=== PATIENT | female | born 1935 ===

== ENCOUNTER 2017-11-12 17:50 | Inpatient (IN) | payer MEDICARE ==
--- NOTE | 2017-11-12 19:40 | ED PDOC ---
HPI: Psych/Substance Abuse Time Seen by Provider: 11/12/17 18:07 Chief Complaint (Nursing): Psychiatric Evaluation Chief Complaint (Provider): Psychiatric Evaluation History Per: Patient, Family (Daughter) History/Exam Limitations: no limitations Onset/Duration Of Symptoms: Days (past few days), Other Current Symptoms Are (Timing): Still Present Additional Complaint(s): 82 year old female, with a past medical history of HTN and hypercholesterolemia , was brought to the ED by her daughter due to agitation and bizarre behavior for a couple of days. According to daughter, patient has been showing increased agitation, increased screaming, and making suicidal statements. Daughter states the patient has been showing these symptoms for the past year, but the increased frequency of these behaviors caused her concern. Patient has no medical complaints. PMD: Provider TBD Past Medical History Reviewed: Historical Data, Nursing Documentation, Vital Signs Vital Signs: Last Vital Signs Temp 97.4 F L 11/12/17 17:56 Pulse 77 11/12/17 17:56 Resp 16 11/12/17 17:56 BP 156/79 H 11/12/17 17:56 Pulse Ox 97 11/12/17 17:56 - Medical History PMH: HTN, Hypercholesterolemia - Surgical History Surgical History: Appendectomy, Cholecystectomy - Family History Family History: States: Unknown Family Hx - Home Medications Home Medications: Ambulatory Orders Medication Instructions Recorded No Known Home Med 11/13/17 - Allergies Allergies/Adverse Reactions: Allergies Allergy/AdvReac Type Severity Reaction Status Date / Time No Known Allergies Allergy Verified 11/12/17 17:56 Review of Systems ROS Statement: Except As Marked, All Systems Reviewed And Found Negative Physical Exam - Reviewed Nursing Documentation Reviewed: Yes Vital Signs Reviewed: Yes - Physical Exam Appears: Positive for: Well, Non-toxic, No Acute Distress Head Exam: Positive for: ATRAUMATIC, NORMAL INSPECTION, NORMOCEPHALIC Skin: Positive for: Normal Color, Warm, Dry. Negative for: Rash Eye Exam: Positive for: EOMI, Normal appearance, PERRL Neck: Positive for: Normal, Painless ROM, Supple Cardiovascular/Chest: Positive for: Regular Rate, Rhythm. Negative for: Murmur Respiratory: Positive for: Normal Breath Sounds. Negative for: Respiratory Distress Gastrointestinal/Abdominal: Positive for: Normal Exam, Soft. Negative for: Tenderness Back: Positive for: Normal Inspection. Negative for: L CVA Tenderness, R CVA Tenderness, Vertebral Tenderness Extremity: Positive for: Normal ROM. Negative for: Pedal Edema, Deformity Neurologic/Psych: Positive for: Alert, Oriented (x2), Mood/Affect (Agitated) - Laboratory Results Result Diagrams: 11/12/17 21:00 11/12/17 21:00 - ECG O2 Sat by Pulse Oximetry: 97 (RA) Pulse Ox Interpretation: Normal Medical Decision Making Medical Decision Making: Time: 18:52 Initial Impression: Psychosis or dementia Plan: --CT Head w/o contrast --Alcohol serum --CMP --Urine drug screen --ED Urine dipstick --CBC w/ differential --Reevaluation --Patient will required medical clearance for crisis evaluation Time: 19:00 --Patient will be endorsed to Dr. Barnard pending workup and crisis evaluation. Scribe Attestation: Documented by Rodrick Sánchez, acting as a scribe for Dana Lopez MD. Provider Scribe Attestation: All medical record entries made by the Scribe were at my direction and personally dictated by me. I have reviewed the chart and agree that the record accurately reflects my personal performance of the history, physical exam, medical decision making, and the department course for this patient. I have also personally directed, reviewed, and agree with the discharge instructions and disposition. Disposition - Clinical Impression Clinical Impression: Psychotic disorder - Patient ED Disposition Is Patient to be Admitted: Transfer of Care Counseled Patient/Family Regarding: Studies Performed, Diagnosis - Disposition Disposition: Transfer of Care Disposition Time: 19:00 Condition: STABLE Patient Signed Over To: Lizzeth Barnard Handoff Comments: pending workup and crisis evaluation
--- NOTE | 2017-11-12 19:54 | ED PDOC ---
- Laboratory Results Result Diagrams: 11/12/17 21:00 11/12/17 21:00 - ECG O2 Sat by Pulse Oximetry: 97 (RA) Medical Decision Making Medical Decision Making: Time: 19:00 --Patient signed over to me by Dr. Lopez pending workup and crisis evaluation. Time: 21:04 CT Head Findings: Brain: Moderate atrophy. No intracranial hemorrhage. No mass. Several scattered foci of decreased attenuation within periventricular/subcortical white matter. 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 No definite edema. Ventricles: No hydrocephalus. Bones/joints: No acute fracture. Soft tissues: Unremarkable. Vasculature: Atherosclerotic disease of intracranial arteries. Sinuses: No acute sinusitis. Mastoid air cells: No mastoid effusion. Orbits: Unremarkable as visualized. IMPRESSION: 1. Nonspecific white matter changes. Acute infarction may be CT occult within first 24 hours. If a focal deficit persists, consider followup CT or MRI for further evaluation. 2. Incidental/non-acute findings are described above [id number] Patient was evaluated by crisis and was accepted for admission under Dr. Wahl for unspecified psychotic disorder. Admission will be to INPATIENT ADULT PSYCHIATRY. Scribe Attestation: Documented by Rodrick Sánchez, acting as a scribe for Lizzeth Barnard MD. Provider Scribe Attestation: All medical record entries made by the Scribe were at my direction and personally dictated by me. I have reviewed the chart and agree that the record accurately reflects my personal performance of the history, physical exam, medical decision making, and the department course for this patient. I have also personally directed, reviewed, and agree with the discharge instructions and disposition. Disposition Counseled Patient/Family Regarding: Diagnosis - Clinical Impression Clinical Impression: Psychotic disorder - POA Present On Arrival: None - Disposition Disposition: Admitted as In-Patient (INPATIENT ADULT PSYCHIATRY) Disposition Time: 23:25 Condition: STABLE
--- NOTE | 2017-11-12 21:04 | CT ---
EXAM: CT Head Without Intravenous Contrast CLINICAL HISTORY: 82 years old, female; Signs and symptoms; Altered mental status/memory loss; Additional info: AMS TECHNIQUE: Axial computed tomography images of the head/brain without intravenous contrast. All CT scans at this facility use one or more dose reduction techniques, viz.: automated exposure control; ma/kV adjustment per patient size (including targeted exams where dose is matched to indication; i.e. head); or iterative reconstruction technique. Coronal and sagittal reformatted images were created and reviewed. COMPARISON: No relevant prior studies available. FINDINGS: Brain: Moderate atrophy. No intracranial hemorrhage. No mass. Several scattered foci of decreased attenuation within periventricular/subcortical white matter. 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 No definite edema. Ventricles: No hydrocephalus. Bones/joints: No acute fracture. Soft tissues: Unremarkable. Vasculature: Atherosclerotic disease of intracranial arteries. Sinuses: No acute sinusitis. Mastoid air cells: No mastoid effusion. Orbits: Unremarkable as visualized. IMPRESSION: 1. Nonspecific white matter changes. Acute infarction may be CT occult within first 24 hours. If a focal deficit persists, consider followup CT or MRI for further evaluation. 2. Incidental/non-acute findings are described above.
[2017-11-12 21:09] LABS: BASO # 0.1 K/uL (0.0-0.2); BASO % 0.8 % (0.0-2.0); EOS # 0.1 K/uL (0.0-0.7); EOS % 1.2 % (0.0-4.0); HEMOGLOBIN 13.3 g/dL (12.0-16.0); LYMPH # 2.8 K/uL (1.0-4.3); MEAN CELL VOLUME 87.2 fl (81.0-99.0); MEAN CORPUSCULAR HEMOGLOBIN 28.3 pg (27.0-31.0); MEAN CORPUSCULAR HGB CONC 32.4 g/dL (33.0-37.0); MEAN PLATELET VOLUME 8.7 fl (7.2-11.7); MONO # 0.7 K/uL (0.0-0.8); MONO % 6.9 % (0.0-10.0); NEUT # 6.8 K/uL (1.8-7.0); NEUT % 64.1 % (50.0-75.0); NRBC % 0.1 % (0.0-0.0); RBC 4.71 Mil/uL (3.80-5.20); RED CELL DISTRIBUTION WIDTH 14.1 % (11.5-14.5); WHITE BLOOD COUNT 10.6 K/uL (4.8-10.8)
[2017-11-12 21:27] LABS: SQUAMOUS EPITHIAL 2 /hpf (0-5); URINE AMORPHOUS SEDIMENT RARE /ul (<OCC); URINE BACTERIA OCC (<OCC); URINE BILIRUBIN NEGATIVE (NEGATIVE); URINE BLOOD NEGATIVE (NEGATIVE); URINE CLARITY SLIGHTY-CLOUDY (Clear); URINE COLOR YELLOW (YELLOW); URINE GLUCOSE (UA) NEG (Normal); URINE LEUKOCYTE ESTERASE TRACE Leu/uL (Negative); URINE NITRATE NEGATIVE (NEGATIVE); URINE PROTEIN NEGATIVE (NEGATIVE)
[2017-11-12 21:34] LABS: ALB/GLOB RATIO 1.2 (1.0-2.1); ALBUMIN 4.2 g/dL (3.5-5.0); ALT/SGPT 40 U/L (9-52); AST/SGOT 40 U/L (14-36); BLOOD UREA NITROGEN 23 mg/dl (7-17); CALCIUM 9.8 mg/dL (8.4-10.2); GFR AFRICAN-AMERICAN > 60; GFR NON-AFRICAN AMERICAN > 60
[2017-11-12 21:47] LABS: BARBITURATES, UR NEGATIVE (NEGATIVE); BENZODIAZEPINES, UR NEGATIVE (NEGATIVE); OPIATES, UR NEGATIVE (NEGATIVE); PHENCYCLIDINE, UR NEGATIVE (NEGATIVE)
[2017-11-13] MEDS ORDERED: Bismuth Subsalicylate 262 mg/15 ml Sus (240 ml) PO PRN (01:21)
[2017-11-13] MEDS ORDERED: Alum-Mag Hydrox-Simethicone Susp (30 mL) PO PRN (01:21)
[2017-11-13] MEDS ORDERED: Magnesium Hydroxide Susp 30 ml UD PO PRN (01:21)
--- NOTE | 2017-11-13 02:28 | PCM.BM ---
<Zenobia Cannon - Last Filed: 11/13/17 02:27> Treatment Plan Problems - Problems identified on initial assessmt Agitated/Aggressive Behavior Date Initiated: 11/13/17 Time Initiated: 02:27 Assessment reference: NA Status: Active Treatment assets and liabiliti Patient Assests: cooperative, good support system, negotiates basic needs Patient Liabilities: language/speech - Milieu Protocol Maintain good personal hygiene: daily Encourage regular showers, daily Remind patient to perform daily oral care, daily Assist patient to perform ADL's Conduct patient checks and document Observation sheet: Q15 minutes Maintain personal safety: every shift Educate patient to report safety concerns to staff, every shift Monitor environment for contraband/sharps Medication safety: Monitor for expected outcome, potential side effects: every shift, Assess barriers to learning: every shift, Assess readiness for medication education: every shift <Carissa Bowens - Last Filed: 11/16/17 11:50> - Diagnosis (1) Dementia with behavioral disturbance Status: Acute Interventions: Medication management, Individual and group therapy, Psychoeducation 11/16/17 11:50 <Adelia Croft - Last Filed: 11/16/17 15:52> Family Contact Family contact: Patient agrees to contact, Telephone contact initiated by staff Family contact name: Peggy Sherman - daughter Family contacted how many times per week?: 2 Family contact comment: [phone] - Goals for Treatment Patient goals for treatment: Pt to be encouraged to attend activity and clinical groups 3-5x per week to identify at least 2 contributing factors to increased agitation, irritability, and aggression. Psycho-education to be provided to patient/family regarding benefits of medications and treatment adherence. Pt to be encouraged to participate in group milieu to develop effective coping skills to reduce aggression and reduce psychiatric hospitalizations. Coordinate discharge resource needs by providing referral for psychiatric treatment follow up in the community. Discharge/Continuing Care - Education Needs Education Needs: Family Medication, Family Diagnosis/Disease Process, Family Coping Skills, Family Anger Management skills, Family Placement options, Family Community resources, Family Activities of Daily Living, Family Uses of Medical Equipment, Family Health Practices/Safety, Family Personal Hygiene/Grooming, Family Aftercare Safety Plan, Patient Medication, Patient Diagnosis/Disease Process, Patient Coping Skills, Patient Anger Management skills, Patient Placement options, Patient Community resources, Patient Activities of Daily Living, Patient Uses of Medical Equipment, Patient Health Practices/Safety, Patient Personal Hygiene/Grooming, Patient Aftercare Safety Plan - Discharge Discharge Criteria: Tolerates medication w/o severe side effects, Free of agitation, Normal sleep pattern, Ability to care for self, Reduction of target symptoms Discharge to:: Home, With Family - Additional Comments 11/16/17 15:50 Pt seen and discussed in team meeting. Reason for admission reviewed and discussed. Pt continues to present with poor insight into hospitalization. Pt is confused and disoriented. Pt believes that she is [place]. Pt unable to state reason for hospitalization. Pt's social and medical issues reviewed and discussed. Pt's medications reviewed and discussed. Tx plan discussed. SW will continue to follow case. - Treatment Team Participation Discussed with Family/SO: No Was Patient/Family/SO present at Treatment Team Meeting: Yes
[2017-11-13] MEDS ORDERED: Pneumococcal 23-Valent Vaccine IM ONE (02:45)
[2017-11-13] MEDS ORDERED: Influenza Vaccine 18yr & older 0.5 ML/45 MCG SYR IM ONE (02:49)
[2017-11-13 06:45] VITALS: O2SAT 97
[2017-11-13 08:07] LABS: IRON 24 ug/dL (37-170)
--- NOTE | 2017-11-13 08:14 | CARD ---
APPROVED REPORT EKG Measurement Heart [id number] ID [id number] <Conclusion> Normal sinus rhythm Nonspecific ST abnormality Abnormal EKG artefact present
[2017-11-13 08:17] LABS: TOTAL IRON BINDING CAPACITY 277 ug/dL (250-450)
[2017-11-13 08:28] LABS: T4 9.74 ug/dl (5.5-11.0)
--- NOTE | 2017-11-13 08:32 | RAD ---
HISTORY: chest pain COMPARISON: No prior. FINDINGS: LUNGS: No active pulmonary disease. PLEURA: No significant pleural effusion identified, no pneumothorax apparent. CARDIOVASCULAR: Normal. OSSEOUS STRUCTURES: Mediastinal anatomy is somewhat distorted by a prominent scoliotic deformity of the thorax spine common index to the right (dextroscoliosis). VISUALIZED UPPER ABDOMEN: Normal. OTHER FINDINGS: None. IMPRESSION: Scoliotic thoracic spinal deformity. No acute cardiopulmonary is appreciable at this time.
[2017-11-13 08:33] LABS: % IRON SATURATION 9 % (20-55)
[2017-11-13 08:46] LABS: FERRITIN 42.7 ng/Ml (11.1-264.0)
--- NOTE | 2017-11-13 11:16 | CP.PCM.CON ---
<Tuan Meyer - Last Filed: 11/14/17 14:47> History of Present Illness - History of Present Illness History of Present Illness: 82 y/o female, with a PMHx of HTN and hypercholesterolemia was seen and evaluated at bedside in psych this morning. Patient states that she was brought in to the ED yesterday by her kids because her kids believe that she is becoming crazy. Patient reports that she was bathing in the river in [place] and now she has water stuck in her ear. Patient denies of any discomfort in her ears. Denies of any acute overnight events. Patient also denied of any burning during urination. Denies of any recent F/N/V/C/SOB/CP/headache/ diarrhea. Denies of any new complains at this time. PMHx: HTN, Hypercholestrolemia PSHx: Appendectomy, Cholecystectomy Allergies: N.K.D.A SHx: Denies of smoking, EtOH use or illicit drug usage FHx: unknown family history PMD: unable to obtain Review of Systems - Constitutional Constitutional: As Per HPI Past Patient History - Past Social History Smoking Status: Never Smoked - CARDIAC Hx Cardiac Disorders: Yes - PULMONARY Hx Tuberculosis: No - NEUROLOGICAL HX Cerebrovascular Accident: No Hx Seizures: No - HEMATOLOGICAL/ONCOLOGICAL Hx Cancer: No Hx Human Immunodeficiency Virus (HIV): No - MUSCULOSKELETAL/RHEUMATOLOGICAL Hx Falls: Yes (5mons ago) - GENITOURINARY/GYNECOLOGICAL Hx Sexually Transmitted Disorders: No - PSYCHIATRIC Hx Substance Use: No - SURGICAL HISTORY Hx Appendectomy: Yes Hx Cholecystectomy: Yes - ANESTHESIA Hx Anesthesia: Yes Hx Anesthesia Reactions: No Meds Allergies/Adverse Reactions: Allergies Allergy/AdvReac Type Severity Reaction Status Date / Time No Known Allergies Allergy Verified 11/12/17 17:56 - Medications Medications: Current Medications Acetaminophen (Tylenol 325mg Tab) 650 mg PO Q6 PRN PRN Reason: FOR PAIN ON PAIN SCALE FROM1-7 Al Hydrox/Mg Hydrox/Simethicone (Maalox Plus 30 Ml) 30 ml PO Q4 PRN PRN Reason: Dyspepsia Bismuth Subsalicylate (Pepto-Bismol) 524 mg PO Q4 PRN PRN Reason: Diarrhea Lorazepam (Ativan) 0.5 mg PO HS PRN PRN Reason: Insomnia Stop: 11/27/17 01:22 Lorazepam (Ativan) 0.5 mg PO Q6 PRN PRN Reason: Anixety/Agitation Stop: 11/27/17 01:22 Last Admin: 11/13/17 01:43 Dose: 0.5 mg Magnesium Hydroxide (Milk Of Magnesia) 30 ml PO HS PRN PRN Reason: Constipation Physical Exam - Constitutional Appears: Well, Non-toxic, No Acute Distress - Head Exam Head Exam: ATRAUMATIC - Eye Exam Eye Exam: Normal appearance - ENT Exam ENT Exam: Normal Exam, Normal External Ear Exam - Neck Exam Neck exam: Positive for: Full Rom, Normal Inspection - Respiratory Exam Respiratory Exam: Clear to Auscultation Bilateral, NORMAL BREATHING PATTERN - Cardiovascular Exam Cardiovascular Exam: REGULAR RHYTHM, +S1, +S2 - GI/Abdominal Exam GI & Abdominal Exam: Normal Bowel Sounds, Soft - Rectal Exam Rectal Exam: Deferred - Extremities Exam Extremities exam: Positive for: full ROM, normal capillary refill, normal inspection. Negative for: calf tenderness, pedal edema, tenderness - Back Exam Back exam: FULL ROM, NORMAL INSPECTION - Neurological Exam Neurological exam: Alert, Normal Gait, Oriented x3 - Psychiatric Exam Psychiatric exam: Normal Affect, Normal Mood - Skin Skin Exam: Intact, Normal Color, Warm Results - Vital Signs Recent Vital Signs: Last Vital Signs Temp 98.3 F 11/13/17 01:05 Pulse 84 11/13/17 01:05 Resp 18 11/13/17 01:09 BP 113/63 11/13/17 01:05 Pulse Ox 97 11/13/17 06:45 - Labs Result Diagrams: 11/14/17 05:30 11/12/17 21:00 Labs: Laboratory Results - last 24 hr 11/12/17 11/12/17 11/12/17 21:00 21:00 21:00 WBC 10.6 RBC 4.71 Hgb 13.3 Hct 41.1 MCV 87.2 MCH 28.3 MCHC 32.4 L RDW 14.1 Plt Count 200 MPV 8.7 Neut % (Auto) 64.1 Lymph % (Auto) 27.0 [place] % (Auto) 6.9 Eos % (Auto) 1.2 Baso % (Auto) 0.8 Neut # 6.8 Lymph # 2.8 [place] # 0.7 Eos # 0.1 Baso # 0.1 Sodium 142 Potassium 3.7 Chloride 104 Carbon Dioxide 28 Anion Gap 14 BUN 23 H Creatinine 0.8 Est GFR ( Amer) > 60 Est GFR (Non-Af Amer) > 60 Random Glucose 94 Calcium 9.8 Iron TIBC % Saturation Ferritin Total Bilirubin 0.9 AST 40 H ALT 40 Alkaline Phosphatase 82 Total Protein 7.8 Albumin 4.2 Globulin 3.6 Albumin/Globulin Ratio 1.2 Triglycerides Cholesterol LDL Cholesterol Direct HDL Cholesterol Vitamin B12 Free T4 Thyroxine (T4) TSH 3rd Generation Urine Color Urine Clarity Urine pH Ur Specific [place] Urine Protein Urine Glucose (UA) Urine Ketones Urine Blood Urine Nitrate Urine Bilirubin Urine Urobilinogen Ur Leukocyte Esterase Urine RBC (Auto) Urine Microscopic WBC Ur Squamous Epith Cells Amorphous Sediment Urine Bacteria Urine Opiates Screen Negative Urine Methadone Screen Negative Ur Barbiturates Screen Negative Ur Phencyclidine Scrn Negative Ur Amphetamines Screen Negative U Benzodiazepines Scrn Negative U Oth Cocaine Metabols Negative U Cannabinoids Screen Negative Alcohol, Quantitative < 10 11/12/17 11/13/17 11/13/17 21:08 07:16 07:16 WBC RBC Hgb Hct MCV MCH MCHC RDW Plt Count MPV Neut % (Auto) Lymph % (Auto) [place] % (Auto) Eos % (Auto) Baso % (Auto) Neut # Lymph # [place] # Eos # Baso # Sodium Potassium Chloride Carbon Dioxide Anion Gap BUN Creatinine Est GFR ( Amer) Est GFR (Non-Af Amer) Random Glucose Calcium Iron 24 L TIBC 277 % Saturation 9 L Ferritin 42.7 Total Bilirubin AST ALT Alkaline Phosphatase Total Protein Albumin Globulin Albumin/Globulin Ratio Triglycerides 75 Cholesterol 163 LDL Cholesterol Direct 95 HDL Cholesterol 36 Vitamin B12 395 Free T4 Thyroxine (T4) 9.74 TSH 3rd Generation 1.63 Urine Color Yellow Urine Clarity Slighty-cloudy Urine pH 6.0 Ur Specific [place] 1.009 Urine Protein Negative Urine Glucose (UA) Neg Urine Ketones Negative Urine Blood Negative Urine Nitrate Negative Urine Bilirubin Negative Urine Urobilinogen 2.0 H Ur Leukocyte Esterase Trace Urine RBC (Auto) 2 Urine Microscopic WBC 9 H Ur Squamous Epith Cells 2 Amorphous Sediment Rare H Urine Bacteria Occ H Urine Opiates Screen Urine Methadone Screen Ur Barbiturates Screen Ur Phencyclidine Scrn Ur Amphetamines Screen U Benzodiazepines Scrn U Oth Cocaine Metabols U Cannabinoids Screen Alcohol, Quantitative 11/13/17 07:16 WBC RBC Hgb Hct MCV MCH MCHC RDW Plt Count MPV Neut % (Auto) Lymph % (Auto) [place] % (Auto) Eos % (Auto) Baso % (Auto) Neut # Lymph # [place] # Eos # Baso # Sodium Potassium Chloride Carbon Dioxide Anion Gap BUN Creatinine Est GFR ( Amer) Est GFR (Non-Af Amer) Random Glucose Calcium Iron TIBC % Saturation Ferritin Total Bilirubin AST ALT Alkaline Phosphatase Total Protein Albumin Globulin Albumin/Globulin Ratio Triglycerides Cholesterol LDL Cholesterol Direct HDL Cholesterol Vitamin B12 Free T4 1.32 Thyroxine (T4) TSH 3rd Generation Urine Color Urine Clarity Urine pH Ur Specific [place] Urine Protein Urine Glucose (UA) Urine Ketones Urine Blood Urine Nitrate Urine Bilirubin Urine Urobilinogen Ur Leukocyte Esterase Urine RBC (Auto) Urine Microscopic WBC Ur Squamous Epith Cells Amorphous Sediment Urine Bacteria Urine Opiates Screen Urine Methadone Screen Ur Barbiturates Screen Ur Phencyclidine Scrn Ur Amphetamines Screen U Benzodiazepines Scrn U Oth Cocaine Metabols U Cannabinoids Screen Alcohol, Quantitative Assessment & Plan - Assessment and Plan (Free Text) Assessment: 82 y/o female, with a PMHx of HTN and hypercholesterolemia was seen and evaluated in psych Plan: HTN, hyperlipidemia -stable -monitor UTI - UA +, trace leukocyte estrase, patient is symptomatic - Macrobid for 3 days Psychosis - management as per psych - Date & Time Date: 11/13/17 Time: 11:18 <Rani Law - Last Filed: 11/14/17 16:15> Meds - Medications Medications: Current Medications Acetaminophen (Tylenol 325mg Tab) 650 mg PO Q6 PRN PRN Reason: FOR PAIN ON PAIN SCALE FROM1-7 Al Hydrox/Mg Hydrox/Simethicone (Maalox Plus 30 Ml) 30 ml PO Q4 PRN PRN Reason: Dyspepsia Bismuth Subsalicylate (Pepto-Bismol) 524 mg PO Q4 PRN PRN Reason: Diarrhea Ciprofloxacin (Cipro) 500 mg PO Q12 LINDA Stop: 11/17/17 21:01 Donepezil HCl (Aricept) 5 mg PO HS LINDA Lorazepam (Ativan) 0.5 mg PO HS PRN PRN Reason: Insomnia Stop: 11/27/17 01:22 Last Admin: 11/13/17 21:59 Dose: 0.5 mg Lorazepam (Ativan) 0.5 mg PO Q6 PRN PRN Reason: Anixety/Agitation Stop: 11/27/17 01:22 Last Admin: 11/14/17 10:28 Dose: 0.5 mg Magnesium Hydroxide (Milk Of Magnesia) 30 ml PO HS PRN PRN Reason: Constipation Memantine (Namenda) 5 mg PO DAILY LINDA Last Admin: 11/14/17 08:07 Dose: 5 mg Risperidone (Risperidone Odt 0.25mg) 0.25 mg PO HS LINDA Results - Vital Signs Recent Vital Signs: Last Vital Signs Temp 97.5 F L 11/14/17 15:48 Pulse 83 11/14/17 15:48 Resp 19 11/14/17 15:48 BP 137/78 11/14/17 15:48 Pulse Ox 97 11/13/17 15:10 - Labs Result Diagrams: 11/14/17 05:30 11/12/17 21:00 Labs: Laboratory Results - last 24 hr 11/13/17 11/13/17 11/14/17 07:16 07:16 05:30 WBC 7.5 RBC 4.30 Hgb 12.3 Hct 37.9 MCV 88.1 MCH 28.5 MCHC 32.4 L RDW 14.6 H Plt Count 181 MPV 9.0 Neut % (Auto) 59.1 Lymph % (Auto) 29.5 [place] % (Auto) 7.8 Eos % (Auto) 2.6 Baso % (Auto) 1.0 Neut # 4.5 Lymph # 2.2 [place] # 0.6 Eos # 0.2 Baso # 0.1 Calcium Magnesium Folate 3.6 RPR Nonreactive 11/14/17 05:45 WBC RBC Hgb Hct MCV MCH MCHC RDW Plt Count MPV Neut % (Auto) Lymph % (Auto) [place] % (Auto) Eos % (Auto) Baso % (Auto) Neut # Lymph # [place] # Eos # Baso # Calcium 8.9 Magnesium 2.0 Folate RPR Attending/Attestation - Attestation I have personally seen and examined this patient.: Yes I have fully participated in the care of the patient.: Yes I have reviewed all pertinent clinical information: Yes Notes (Text): 11/14/17 16:15 seen examined discussed with resident Dr. Tuan Meyer. Agree with findings and plan as above.
[2017-11-13 17:02] LABS: FOLATE 3.6 ng/mL
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
[2017-11-14 06:07] LABS: BASO # 0.1 K/uL (0.0-0.2); EOS # 0.2 K/uL (0.0-0.7); EOS % 2.6 % (0.0-4.0); HEMOGLOBIN 12.3 g/dL (12.0-16.0); LYMPH # 2.2 K/uL (1.0-4.3); LYMPH % 29.5 % (20.0-40.0); MEAN CELL VOLUME 88.1 fl (81.0-99.0); MEAN CORPUSCULAR HEMOGLOBIN 28.5 pg (27.0-31.0); MEAN CORPUSCULAR HGB CONC 32.4 g/dL (33.0-37.0); MONO # 0.6 K/uL (0.0-0.8); MONO % 7.8 % (0.0-10.0); NEUT # 4.5 K/uL (1.8-7.0); NEUT % 59.1 % (50.0-75.0); NRBC % 0.1 % (0.0-0.0); RBC 4.3 Mil/uL (3.80-5.20); RED CELL DISTRIBUTION WIDTH 14.6 % (11.5-14.5); WHITE BLOOD COUNT 7.5 K/uL (4.8-10.8)
[2017-11-14 06:24] LABS: CALCIUM 8.9 mg/dL (8.4-10.2)
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
[2017-11-14] MEDS: RISPERIDONE 0.25 MG ODT PO SCH (21:08)
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
[2017-11-15] MEDS: RISPERIDONE 0.25 MG ODT PO SCH (21:12)
--- NOTE | 2017-11-16 08:24 | CARD ---
APPROVED REPORT EKG Measurement Heart [id number] <Conclusion> Normal sinus rhythm Normal ECG
[2017-11-16] MEDS ORDERED: Multivitamin With Minerals Tab PO SCH (09:00)
--- NOTE | 2017-11-16 11:53 | PCM.PYCHPN ---
Psychiatric Progress Note - Psychiatric Progress Note Patient seen today, length of contact: Patient evaluated, case discussed with team, chart reviewed Patient Chief Complaint: "I'm okay." Problems Identified/Issues Discussed: A + O x 1, does not know her own age. Patient continues to show some mood lability. She has poor insight into why she is in the hospital and her cognitive deficits. Denies acute AH/VH, but could have some mild paranoia. Medication Change: Yes (Increase Risperdal to 0.5 mg PO HS) Medical Record Reviewed: Yes Consults ordered or reviewed: Medicine consult, Psychology consult Mental Status Examination - Cognitive Function Orientation: Person Memory: Impaired Attention: Poor Concentration: Poor Association: Loose Fund of Knowledge: Poor Decription of patient's judgement and insights: Poor insight/judgment due to cognitive impairment - Mood Mood: Neutral - Affect Affect: Constricted - Speech Speech: Appropriate - Formal Thought Process Formal Thought Process: Paranoia Psychotic Thoughts and Behaviors: Denies AH/VH - Suicidal Ideation Suicidal Ideation: No - Homicidal Ideation Homicidal Ideation: No Goal/Treatment Plan - Goal/Treatment Plan Need for Continued Stay: Remain at risks for inpatient hospitalization, Discharge may exacerbated symptoms, Severe functional impairment Progress Toward Problem(s) and Goals/Treatment Plan: Dementia with behavioral disturbances; patient needs continued hospitalization for treatment and stabilization -Increase Risperdal to 0.5 mg PO HS -Continue Cipro for UTI -Medicine consult appreciated -Individual and group therapy -Disposition planning -Continue Aricept and Namenda Estimated Date of D/C: 11/21/17 - Smoking Cessation Smoking Cessation Initiated: No Reason for not providing: Not indicated
[2017-11-16] MEDS: Risperidone M tab 0.5MG PO SCH (21:14)
[2017-11-17] MEDS: Multi Vitamins 15 mL UD Oral Solution PO SCH (10:08)
--- NOTE | 2017-11-17 11:14 | PCM.PYCHPN ---
Psychiatric Progress Note - Psychiatric Progress Note Patient seen today, length of contact: Patient evaluated, case discussed with team, chart reviewed Patient Chief Complaint: "I'm okay." Problems Identified/Issues Discussed: A + O x 1. Patient continues to be disoriented to location and situation. He is calm with narrative writer but has poor insight into why she is in the hospital. Denies acute AH/VH, but could have some mild paranoia. Medication Change: Yes (Vitamin D) Medical Record Reviewed: Yes Consults ordered or reviewed: Medicine consult, Psychology consult Mental Status Examination - Cognitive Function Orientation: Person Memory: Impaired Attention: Poor Concentration: Poor Association: Loose Fund of Knowledge: Poor Decription of patient's judgement and insights: Poor insight/judgment due to cognitive impairment - Mood Mood: Neutral - Affect Affect: Constricted - Speech Speech: Appropriate - Formal Thought Process Formal Thought Process: Paranoia Psychotic Thoughts and Behaviors: Denies AH/VH - Suicidal Ideation Suicidal Ideation: No - Homicidal Ideation Homicidal Ideation: No Goal/Treatment Plan - Goal/Treatment Plan Need for Continued Stay: Remain at risks for inpatient hospitalization, Discharge may exacerbated symptoms, Severe functional impairment Progress Toward Problem(s) and Goals/Treatment Plan: Dementia with behavioral disturbances; patient needs continued hospitalization for treatment and stabilization -Continue Risperdal 0.5 mg PO HS -Continue Cipro for UTI -Medicine consult appreciated -Individual and group therapy -Disposition planning -Continue Aricept and Namenda -Psychology consult -Vitamin D Estimated Date of D/C: 11/22/17 - Smoking Cessation Smoking Cessation Initiated: No Reason for not providing: Not indicated
--- NOTE | 2017-11-17 13:27 | CP.PCM.CON ---
History of Present Illness - History of Present Illness History of Present Illness: Pt is an 82 year old female admitted to [facility] and referred to the lead technical writer for eval. Speech rapid/pressured on interview, thoughts disorganized, patient positive for paranoia. Cognitive testing attempted though results would not be an accurate assessment of her true abilities at this time. Pt should be evaluated when her psychiatric symptoms remit. Thank you, Dr. North Past Patient History - Past Social History Smoking Status: Never Smoked - CARDIAC Hx Cardiac Disorders: Yes - PULMONARY Hx Tuberculosis: No - NEUROLOGICAL HX Cerebrovascular Accident: No Hx Seizures: No - HEMATOLOGICAL/ONCOLOGICAL Hx Cancer: No Hx Human Immunodeficiency Virus (HIV): No - MUSCULOSKELETAL/RHEUMATOLOGICAL Hx Falls: Yes (5mons ago) - GENITOURINARY/GYNECOLOGICAL Hx Sexually Transmitted Disorders: No - PSYCHIATRIC Hx Substance Use: No - SURGICAL HISTORY Hx Appendectomy: Yes Hx Cholecystectomy: Yes - ANESTHESIA Hx Anesthesia: Yes Hx Anesthesia Reactions: No Meds Allergies/Adverse Reactions: Allergies Allergy/AdvReac Type Severity Reaction Status Date / Time No Known Allergies Allergy Verified 11/12/17 17:56 - Medications Medications: Current Medications Acetaminophen (Tylenol 325mg Tab) 650 mg PO Q6 PRN PRN Reason: FOR PAIN ON PAIN SCALE FROM1-7 Al Hydrox/Mg Hydrox/Simethicone (Maalox Plus 30 Ml) 30 ml PO Q4 PRN PRN Reason: Dyspepsia Bismuth Subsalicylate (Pepto-Bismol) 524 mg PO Q4 PRN PRN Reason: Diarrhea Ciprofloxacin (Cipro) 500 mg PO Q12 LINDA PRN Reason: Protocol Last Admin: 11/17/17 10:07 Dose: 500 mg Donepezil HCl (Aricept) 5 mg PO HS LINDA Last Admin: 11/16/17 21:14 Dose: 5 mg Lorazepam (Ativan) 0.5 mg PO HS PRN PRN Reason: Insomnia Stop: 11/27/17 01:22 Last Admin: 11/15/17 23:07 Dose: 0.5 mg Lorazepam (Ativan) 0.5 mg PO Q6 PRN PRN Reason: Anixety/Agitation Stop: 11/27/17 01:22 Last Admin: 11/17/17 02:41 Dose: 0.5 mg Magnesium Hydroxide (Milk Of Magnesia) 30 ml PO HS PRN PRN Reason: Constipation Memantine (Namenda) 5 mg PO DAILY [facility] Last Admin: 11/17/17 10:07 Dose: 5 mg Multivitamins/Vitamin C (Multi-Delyn Liquid) 15 ml PO DAILY [facility] Last Admin: 11/17/17 10:08 Dose: 15 ml Risperidone (Risperdal M-Tab) 0.[address] [facility] Last Admin: 11/16/17 21:14 Dose: 0.5 mg Vitamin D (Vitamin D 400 Intl Units Tab) 400 intlu PO DAILY [facility] Results - Vital Signs Recent Vital Signs: Last Vital Signs Temp 98.1 F 11/16/17 15:55 Pulse 87 11/16/17 15:55 Resp 18 11/16/17 15:55 BP 118/70 11/16/17 15:55 Pulse Ox 97 11/13/17 15:10 - Labs Result Diagrams: 11/14/17 05:30 11/12/17 21:00 Labs: Laboratory Results - last 24 hr 11/16/17 11/16/17 09:15 09:15 Ferritin 32.4 25-OH Vitamin D Total 22.2 L
[2017-11-17] MEDS: Cholecalciferol 400 Intl Units Tab PO SCH ×2 (14:18→18:36)
[2017-11-17 16:08] LABS: % IRON SATURATION 19 % (20-55); IRON 62 ug/dL (37-170); TOTAL IRON BINDING CAPACITY 327 ug/dL (250-450)
[2017-11-17] MEDS: Cholecalciferol 1,000 INTLU TAB PO SCH (16:17)
[2017-11-17] MEDS: Risperidone M tab 0.5MG PO SCH (21:15)
[2017-11-18] MEDS: Cholecalciferol 1,000 INTLU TAB PO SCH ×2 (08:32→11:45)
[2017-11-18] MEDS: Multi Vitamins 15 mL UD Oral Solution PO SCH (09:57)
--- NOTE | 2017-11-18 11:18 | PCM.PYCHPN ---
Psychiatric Progress Note - Psychiatric Progress Note Patient seen today, length of contact: Patient evaluated, case discussed with team, chart reviewed Patient Chief Complaint: I do not like eggs Problems Identified/Issues Discussed: pt seen eating her breakfast, calm cooperative . no reported suicidal or homicidal ideations, no changes in sleep or appetite oriented to person only no current behavioral disturbances DSM 5 Symptoms Update: dementia Medication Change: No (Vitamin D) Medical Record Reviewed: Yes Mental Status Examination - Cognitive Function Orientation: Person Memory: Impaired Attention: Poor Concentration: Poor Association: Loose Fund of Knowledge: Poor - Mood Mood: Neutral - Affect Affect: Constricted - Speech Speech: Appropriate - Formal Thought Process Formal Thought Process: Paranoia - Suicidal Ideation Suicidal Ideation: No - Homicidal Ideation Homicidal Ideation: No Goal/Treatment Plan - Goal/Treatment Plan Need for Continued Stay: Remain at risks for inpatient hospitalization, Discharge may exacerbated symptoms, Severe functional impairment Progress Toward Problem(s) and Goals/Treatment Plan: continue current managment Estimated Date of D/C: 11/22/17
[2017-11-18] MEDS: Risperidone M tab 0.5MG PO SCH (21:27)
[2017-11-19] MEDS: Cholecalciferol 1,000 INTLU TAB PO SCH (09:38)
[2017-11-19] MEDS: Multi Vitamins 15 mL UD Oral Solution PO SCH (09:38)
--- NOTE | 2017-11-19 11:55 | PCM.PYCHPN ---
Psychiatric Progress Note - Psychiatric Progress Note Patient seen today, length of contact: Patient evaluated, case discussed with team, chart reviewed Patient Chief Complaint: I am putting my clothes in a bag Problems Identified/Issues Discussed: pt seen in hallway, , calm cooperative . no reported suicidal or homicidal ideations, no changes in sleep or appetite oriented to person only no current behavioral disturbances DSM 5 Symptoms Update: dementia Medication Change: No (Vitamin D) Medical Record Reviewed: Yes Mental Status Examination - Cognitive Function Orientation: Person Memory: Impaired Attention: Poor Concentration: Poor Association: Loose Fund of Knowledge: Poor - Mood Mood: Neutral - Affect Affect: Constricted - Speech Speech: Appropriate - Formal Thought Process Formal Thought Process: Paranoia - Suicidal Ideation Suicidal Ideation: No - Homicidal Ideation Homicidal Ideation: No Goal/Treatment Plan - Goal/Treatment Plan Need for Continued Stay: Remain at risks for inpatient hospitalization, Discharge may exacerbated symptoms, Severe functional impairment Progress Toward Problem(s) and Goals/Treatment Plan: continue current medications group and supportive therapy Estimated Date of D/C: 11/22/17
--- NOTE | 2017-11-20 09:52 | PCM.PYCHPN ---
Psychiatric Progress Note - Psychiatric Progress Note Patient seen today, length of contact: Patient evaluated, case discussed with team, chart reviewed Patient Chief Complaint: "I'm okay." Problems Identified/Issues Discussed: A + O x 1. Patient continues to be disoriented to location and situation. She is intermittent compliant with medications at times. She has not had any significant behavioral disturbances. NO current psychotic symptoms. No paranoia. Medication Change: No Medical Record Reviewed: Yes Consults ordered or reviewed: Medicine consult, Psychology consult Mental Status Examination - Cognitive Function Orientation: Person Memory: Impaired Attention: Poor Concentration: Poor Association: Loose Fund of Knowledge: Poor Decription of patient's judgement and insights: Chronic poor I/J due to dementia - Mood Mood: Neutral - Affect Affect: Constricted - Speech Speech: Appropriate - Formal Thought Process Formal Thought Process: Loosening of associations Psychotic Thoughts and Behaviors: NO AH/VH/paranoia - Suicidal Ideation Suicidal Ideation: No - Homicidal Ideation Homicidal Ideation: No Goal/Treatment Plan - Goal/Treatment Plan Need for Continued Stay: Remain at risks for inpatient hospitalization, Discharge may exacerbated symptoms, Severe functional impairment Progress Toward Problem(s) and Goals/Treatment Plan: Dementia with behavioral disturbances; patient needs continued hospitalization for treatment and stabilization -Continue Risperdal 0.5 mg PO HS -Continue Cipro for UTI -Medicine consult appreciated -Individual and group therapy -Disposition planning -Continue Aricept and Namenda -Psychology consult -Vitamin D Estimated Date of D/C: 11/22/17
[2017-11-20] MEDS ORDERED: cefTRIAXone (Rocephin) 1 gm Inj IM ONE (11:52)
--- NOTE | 2017-11-20 11:55 | CP.PCM.PN ---
Subjective - Date & Time of Evaluation Date of Evaluation: 11/20/17 Time of Evaluation: 11:54 - Subjective Subjective: PATIENT SEEN EXAMINED THIS MORNING REFUSES TO TAKE PO ABX FOR UTI. ABX CHOSEN BASED ON SENSITIVITIES, HOWEVER PT REFUSES TO TAKE PILLS. WILL GIVE ONE DOSE CEFTRIAXONE IM. Objective - Vital Signs/Intake and Output Vital Signs (last 24 hours): Temp Pulse Resp BP Pulse Ox 97.6 F 88 18 154/79 H 97 11/19/17 16:09 11/19/17 16:09 11/19/17 16:09 11/19/17 16:09 11/13/17 15:10 - Medications Medications: Current Medications Acetaminophen (Tylenol 325mg Tab) 650 mg PO Q6 PRN PRN Reason: FOR PAIN ON PAIN SCALE FROM1-7 Al Hydrox/Mg Hydrox/Simethicone (Maalox Plus 30 Ml) 30 ml PO Q4 PRN PRN Reason: Dyspepsia Bismuth Subsalicylate (Pepto-Bismol) 524 mg PO Q4 PRN PRN Reason: Diarrhea Ceftriaxone Sodium (Rocephin) 1 gm IM ONCE ONE PRN Reason: Protocol Stop: 11/20/17 11:53 Cholecalciferol (Vitamin D) 1,000 intlu PO DAILY [facility] Last Admin: 11/19/17 09:38 Dose: Not Given Ciprofloxacin (Cipro) 500 mg PO Q12 LINDA PRN Reason: Protocol Last Admin: 11/19/17 09:00 Dose: Not Given Donepezil HCl (Aricept) 5 mg PO HS [facility] Last Admin: 11/18/17 21:28 Dose: 5 mg Lorazepam (Ativan) 0.5 mg IM Q6 PRN PRN Reason: Agitation Magnesium Hydroxide (Milk Of Magnesia) 30 ml PO HS PRN PRN Reason: Constipation Memantine (Namenda) 5 mg PO DAILY [facility] Last Admin: 11/19/17 09:38 Dose: Not Given Multivitamins/Vitamin C (Multi-Delyn Liquid) 15 ml PO DAILY [facility] Last Admin: 11/19/17 09:38 Dose: Not Given Risperidone (Risperdal M-Tab) 0.5 mg PO HS [facility] Last Admin: 11/18/17 21:27 Dose: 0.5 mg - Labs Labs: 11/14/17 05:30 11/12/17 21:00
[2017-11-20] MEDS: Multi Vitamins 15 mL UD Oral Solution PO SCH (16:49)
[2017-11-20] MEDS: Cholecalciferol 1,000 INTLU TAB PO SCH (16:50)
[2017-11-20] MEDS ORDERED: Risperidone M tab 0.5MG PO SCH (17:00)
[2017-11-20] MEDS: Risperidone M tab 0.5MG PO SCH (20:07)
[2017-11-21] MEDS: Multi Vitamins 15 mL UD Oral Solution PO SCH (08:49)
[2017-11-21] MEDS: Cholecalciferol 1,000 INTLU TAB PO SCH (08:50)
--- NOTE | 2017-11-21 11:16 | PCM.PYCHPN ---
Psychiatric Progress Note - Psychiatric Progress Note Patient seen today, length of contact: Patient evaluated, case discussed with team, chart reviewed Patient Chief Complaint: "I'm okay." Problems Identified/Issues Discussed: A + O x 1. Patient continues to be disoriented to location and situation. She is currently calm and cooperative w/o any behavioral disturbances. NO current psychotic symptoms. No paranoia. Medication Change: No Medical Record Reviewed: Yes Consults ordered or reviewed: Medicine consult, Psychology consult Mental Status Examination - Cognitive Function Orientation: Person Memory: Impaired Attention: Poor Concentration: Poor Association: Loose Fund of Knowledge: Poor Decription of patient's judgement and insights: Chronic poor I/J due to dementia - Mood Mood: Neutral - Affect Affect: Constricted - Speech Speech: Appropriate - Formal Thought Process Formal Thought Process: Loosening of associations Psychotic Thoughts and Behaviors: NO AH/VH/paranoia - Suicidal Ideation Suicidal Ideation: No - Homicidal Ideation Homicidal Ideation: No Goal/Treatment Plan - Goal/Treatment Plan Need for Continued Stay: Discharge may exacerbated symptoms, Severe functional impairment Progress Toward Problem(s) and Goals/Treatment Plan: Dementia with behavioral disturbances; patient needs continued hospitalization for treatment and stabilization -Continue Risperdal 0.5 mg Daily@1300 -Patient completed treatment for UTI -Medicine consult appreciated -Individual and group therapy -Disposition planning- SW to discuss likely discharge to home tomorrow w/ patient's daughter -Continue Aricept and Namenda -Psychology consult -Vitamin D Estimated Date of D/C: 11/22/17 - Smoking Cessation Smoking Cessation Initiated: No Reason for not providing: Not indicated
[2017-11-21] MEDS ORDERED: Risperidone M tab 0.5MG PO SCH (13:00)
[2017-11-22 06:41] VITALS: BP 153/80; PULSE 69; RESP 18; TEMP 97.5
[2017-11-22] MEDS: Multi Vitamins 15 mL UD Oral Solution PO SCH (08:18)
[2017-11-22] MEDS: Cholecalciferol 1,000 INTLU TAB PO SCH (09:00)
--- NOTE | 2017-11-22 09:45 | PCM.PYCHDC ---
Mental Status Examination - Mental Status Examination Orientation: Person Memory: Impaired Mood: Neutral Affect: Broad Speech: Appropriate Attention: Poor Concentration: Poor Association: Loose Fund of Knowledge: Poor Formal Thought Process: Loosening of associations Description of patient's judgement and insight: Chronic poor I/J due to dementia Psychotic Thoughts and Behaviors: NO AH/VH/paranoia Suicidal Ideation: No Current Homicidal Ideation?: No Discharge Summary - Discharge Note Reason for Hospitalization: 82 y/o female, with a PMHx of HTN and hypercholesterolemia admitted to psychiatry for worsening dementia with behavioral disturbances and paranoia. PMHx: HTN, Hypercholestrolemia PSHx: Appendectomy, Cholecystectomy Allergies: N.K.D.A SHx: Denies of smoking, EtOH use or illicit drug usage FHx: No known family h/o mental illness Psychiatric History (includes Medical, Family, Personal Hx): evaluation of changes in memory ?dementia Consultations:: List each consultation separately and include: 1. Reason for request. 2. Findings. 3. Follow-up Consultations: Medicine consult, Psychology consult Summary of Hospital Course include:: 1. Description of specific treatment plan utilized for patients during their course of treatmen. 2. Summarize the time- course for resolution of acute symptoms and/or regressed behaviors. 3. Describe issues identified and worked on during hospitalization. 4. Describe medication utilized. 5. Describe medical problems identified and treated. 6. Reassessment of suicide risk Summary of Hospital Course: Patient was admitted to the geriatric psychiatry unit. Individual and group therapy were provided. Patient was stabilized on Aricept, Namenda and Risperdal. She no longer has paranoia or behavioral disturbances. She is psychiatrically stable for discharge with outpatient follow-up. Case was discussed with patient's daughter. They were given guidance by the older adult social work specialist on how to apply for appropriate insurance and [facility] placement. Patient is to return home under the care of her daughter. - Diagnosis (1) Dementia with behavioral disturbance Current Visit: Yes Status: Chronic - Final Diagnosis (DSM 5) Condition upon Discharge: STABLE DSM 5: Dementia with behavioral disturbance; Psychosis unspecified Disposition: HOME/ ROUTINE Follow-up Treatment Plan: Dementia with behavioral disturbances; Psychois Unspecified; patient is psychiatrically stable for discharge -Continue Risperdal 0.5 mg Daily@1300 -Patient completed treatment for UTI -Medicine consult appreciated -Individual and group therapy -Disposition planning- discharge to home under the care of her daughter -Continue Aricept and Namenda -Psychology consult -Vitamin D Prescriptions/Medication Reconciliation: Cholecalciferol [Vitamin D 1000 IU] 1,000 intlu PO DAILY #30 tab Donepezil [Aricept] 5 mg PO HS #30 tab Memantine [Namenda] 5 mg PO DAILY #30 tab risperiDONE [RisperDAL] 0.5 mg PO DAILY@1300 #30 tab - Smoking Cessation Smoking Cessation Medication prescribed: No Reason for not providing: Not indicated - Antipsychotic Medications Pt discharged on 2 or more routine antipsychotic medications: No
--- NOTE | 2017-11-23 09:49 | PCM.BM ---
Treatment Plan Problems - Problems identified on initial assessmt Agitated/Aggressive Behavior Date Initiated: 11/13/17 Time Initiated: 02:27 Assessment reference: NA Status: Active Treatment assets and liabiliti Patient Assests: cooperative, good support system, negotiates basic needs Patient Liabilities: language/speech - Milieu Protocol Maintain good personal hygiene: daily Encourage regular showers, daily Remind patient to perform daily oral care, daily Assist patient to perform ADL's Conduct patient checks and document Observation sheet: Q15 minutes Maintain personal safety: every shift Educate patient to report safety concerns to staff, every shift Monitor environment for contraband/sharps Medication safety: Monitor for expected outcome, potential side effects: every shift, Assess barriers to learning: every shift, Assess readiness for medication education: every shift Milieu Narrative: Dementia with behavioral disturbances; Psychois Unspecified; patient is psychiatrically stable for discharge -Continue Risperdal 0.5 mg Daily@1300 -Patient completed treatment for UTI -Medicine consult appreciated -Individual and group therapy -Disposition planning- discharge to home under the care of her daughter -Continue Aricept and Namenda -Psychology consult -Vitamin D Family Contact Family contact: Patient agrees to contact, Telephone contact initiated by staff Family contact name: Peggy Sherman - daughter Family contacted how many times per week?: 2 Family contact comment: [phone] - Goals for Treatment Patient goals for treatment: Pt to be encouraged to attend activity and clinical groups 3-5x per week to identify at least 2 contributing factors to increased agitation, irritability, and aggression. Psycho-education to be provided to patient/family regarding benefits of medications and treatment adherence. Pt to be encouraged to participate in group milieu to develop effective coping skills to reduce aggression and reduce psychiatric hospitalizations. Coordinate discharge resource needs by providing referral for psychiatric treatment follow up in the community. Discharge/Continuing Care - Education Needs Education Needs: Family Medication, Family Diagnosis/Disease Process, Family Coping Skills, Family Anger Management skills, Family Placement options, Family Community resources, Family Activities of Daily Living, Family Uses of Medical Equipment, Family Health Practices/Safety, Family Personal Hygiene/Grooming, Family Aftercare Safety Plan, Patient Medication, Patient Diagnosis/Disease Process, Patient Coping Skills, Patient Anger Management skills, Patient Placement options, Patient Community resources, Patient Activities of Daily Living, Patient Uses of Medical Equipment, Patient Health Practices/Safety, Patient Personal Hygiene/Grooming, Patient Aftercare Safety Plan - Discharge Discharge Criteria: Tolerates medication w/o severe side effects, Free of agitation, Normal sleep pattern, Ability to care for self, Reduction of target symptoms Discharge to:: Home, With Family - Additional Comments 11/16/17 15:50 Pt seen and discussed in team meeting. Reason for admission reviewed and discussed. Pt continues to present with poor insight into hospitalization. Pt is confused and disoriented. Pt believes that she is [place]. Pt unable to state reason for hospitalization. Pt's social and medical issues reviewed and discussed. Pt's medications reviewed and discussed. Tx plan discussed. SW will continue to follow case. - Treatment Team Participation Patient/Family/SO Statement: Dementia with behavioral disturbances; Psychois Unspecified; patient is psychiatrically stable for discharge -Continue Risperdal 0.5 mg Daily@1300 -Patient completed treatment for UTI -Medicine consult appreciated -Individual and group therapy -Disposition planning- discharge to home under the care of her daughter -Continue Aricept and Namenda -Psychology consult -Vitamin D Discussed with Family/SO: No Was Patient/Family/SO present at Treatment Team Meeting: Yes Treatment Plan Review - Problem Agitated/Aggressive Behavior Date Initiated: 11/12/17 Time Initiated: 02:27 Progress toward outcomes: resolved - Discharge / Continuing Care Discharge to:: With Family Behavioral Health Services: Outpatient therapy, Home health care, Adult day care Health Needs: Follow up care/test, Doctor appointments, Medications/Rx, Recreational/Social
== END 2017-11-22 15:25 | disposition home or self-care (01) | DRG 884 ==
LOC: H.ER 17:50 → H.ERHOLD 23:52 → H.STEP 11-13 01:07
PROVIDERS: ADMIT Psychiatry & Neurology Psychiatry; ATTEND Psychiatry & Neurology Psychiatry
PROC: GZHZZZZ Group Psychotherapy (ICD-10-PCS; principal; 2017-11-13)
PROC: GZ51ZZZ Individual Psychotherapy, Behavioral (ICD-10-PCS; 2017-11-13)
DX: F03.91 Unspecified dementia, unspecified severity, with behavioral disturbance (principal); E11.9 Type 2 diabetes mellitus without complications; N39.0 Urinary tract infection, site not specified; D50.9 Iron deficiency anemia, unspecified; E78.00 Pure hypercholesterolemia, unspecified; F32.9 Major depressive disorder, single episode, unspecified; F41.9 Anxiety disorder, unspecified; I10 Essential (primary) hypertension; Z90.49 Acquired absence of other specified parts of digestive tract; R19.5 Other fecal abnormalities; R94.31 Abnormal electrocardiogram [ECG] [EKG]

== ENCOUNTER 2017-11-24 17:39 | Emergency (ER) | payer MEDICARE, MEDICAID ==
[2017-11-24 18:01] VITALS: BP 170/88; PULSE 86; RESP 16; TEMP 98.3; O2SAT 97
[2017-11-24 19:27] LABS: BASO # 0.1 K/uL (0.0-0.2); BASO % 0.7 % (0.0-2.0); EOS # 0.2 K/uL (0.0-0.7); EOS % 2.5 % (0.0-4.0); HEMOGLOBIN 11.9 g/dL (12.0-16.0); LYMPH # 2.1 K/uL (1.0-4.3); LYMPH % 23.3 % (20.0-40.0); MEAN CELL VOLUME 87.9 fl (81.0-99.0); MEAN CORPUSCULAR HGB CONC 31.9 g/dL (33.0-37.0); MEAN PLATELET VOLUME 9.4 fl (7.2-11.7); MONO # 0.8 K/uL (0.0-0.8); MONO % 8.5 % (0.0-10.0); NEUT # 5.9 K/uL (1.8-7.0); RBC 4.24 Mil/uL (3.80-5.20); RED CELL DISTRIBUTION WIDTH 14.6 % (11.5-14.5)
[2017-11-24 19:36] LABS: ALB/GLOB RATIO 1.1 (1.0-2.1); ALBUMIN 3.7 g/dL (3.5-5.0); ALT/SGPT 37 U/L (9-52); AST/SGOT 32 U/L (14-36); BLOOD UREA NITROGEN 23 mg/dl (7-17); CALCIUM 9.4 mg/dL (8.4-10.2); GFR AFRICAN-AMERICAN > 60; GFR NON-AFRICAN AMERICAN 60
--- NOTE | 2017-11-24 20:20 | ED PDOC ---
HPI: Psych/Substance Abuse Time Seen by Provider: 11/24/17 18:08 Chief Complaint (Nursing): Psychiatric Evaluation Chief Complaint (Provider): Psychiatric Evaluation History Per: Patient History/Exam Limitations: no limitations Additional Complaint(s): 82 year old female with a past medical history of Alzheimer's dementia who presents to the emergency department accompanied by daughter for a psychiatric evaluation. As per daughter, patient was aggressive today. Patient was confused and angry about her shoe and took a knife to cut it and then started crying/ Patient mentioned to her sister that she did not want to live anymore. Denies fever, headache, chest pain, or vomiting. Past Medical History Reviewed: Historical Data, Nursing Documentation, Vital Signs Vital Signs: Last Vital Signs Temp 98.3 F 11/24/17 17:58 Pulse 86 11/24/17 17:58 Resp 16 11/24/17 17:58 BP 170/88 H 11/24/17 17:58 Pulse Ox 97 11/24/17 17:58 - Medical History PMH: HTN, Hypercholesterolemia Denies: Diabetes, Hepatitis, HIV, Seizures, Sexually Transmitted Disease - Surgical History Surgical History: Appendectomy, Cholecystectomy - Family History Family History: States: Unknown Family Hx - Home Medications Home Medications: Ambulatory Orders Medication Instructions Recorded Cholecalciferol [Vitamin D 1000 IU] 1,000 intlu PO DAILY #30 tab 11/22/17 Donepezil [Aricept] 5 mg PO HS #30 tab 11/22/17 Memantine [Namenda] 5 mg PO DAILY #30 tab 11/22/17 risperiDONE [RisperDAL] 0.5 mg PO DAILY@1300 #30 tab 11/22/17 - Allergies Allergies/Adverse Reactions: Allergies Allergy/AdvReac Type Severity Reaction Status Date / Time No Known Allergies Allergy Verified 11/12/17 17:56 Review of Systems ROS Statement: Except As Marked, All Systems Reviewed And Found Negative (As per HPI, otherwise negative) Constitutional: Positive for: Other (psychiatric evaluation). Negative for: Fever Cardiovascular: Negative for: Chest Pain Gastrointestinal: Negative for: Vomiting Neurological: Negative for: Headache Psych: Positive for: Other (Aggressive) Physical Exam - Reviewed Nursing Documentation Reviewed: Yes Vital Signs Reviewed: Yes - Physical Exam Appears: Positive for: Non-toxic, No Acute Distress Head Exam: Positive for: ATRAUMATIC, NORMAL INSPECTION, NORMOCEPHALIC Skin: Positive for: Normal Color, Warm, Dry Cardiovascular/Chest: Positive for: Regular Rate, Rhythm. Negative for: Murmur Respiratory: Positive for: Normal Breath Sounds. Negative for: Accessory Muscle Use, Respiratory Distress Gastrointestinal/Abdominal: Positive for: Normal Exam, Soft. Negative for: Tenderness Back: Positive for: Normal Inspection Extremity: Positive for: Normal ROM. Negative for: Pedal Edema Neurologic/Psych: Positive for: Alert, Oriented (to self), Mood/Affect (Calm and cooperative) - Laboratory Results Result Diagrams: 11/24/17 18:57 11/24/17 18:57 - ECG O2 Sat by Pulse Oximetry: 97 (RA) Pulse Ox Interpretation: Normal Medical Decision Making Medical Decision Making: Time: 1815 Initial impression: Psychiatric Evaluation Initial plan: EKG Drug Screen, Urine Chest x-ray Urinalysis Reevaluation EKG : NSR at 83 bpm, (-) acute ST changes, as read by PA. CXR : NAD, as read by PA Labs reviewed and are within normal limits. On reevaluation, patient is resting comfortably in bed in no acute distress, she continues to be calm and cooperative with staff. Patient is medically cleared for crisis evaluation. Patient seen and evaluated by [facility]. After crisis evaluation, decision was made by [facility] for outpatient psychiatric follow-up. Patient's daughter advised that the patient will need to follow up with outpatient psychiatry referral provided by crisis in 1-2 days without fail. Advised to return to the emergency room at any time for any new or worsening symptoms. Patient's daughter states that she fully agrees with and understands discharge instructions. States that she agrees with the plan and disposition. Verbalized and repeated discharge instructions and plan. I have given the patient opportunity to ask any additional questions. Scribe Attestation: Documented by Jessie Morejon, acting as a scribe for Melvina Poole PA-C Provider Scribe Attestation: All medical record entries made by the Scribe were at my direction and personally dictated by me. I have reviewed the chart and agree that the record accurately reflects my personal performance of the history, physical exam, medical decision making, and the department course for this patient. I have also personally directed, reviewed, and agree with the discharge instructions and disposition. Disposition - Clinical Impression Clinical Impression: Dementia with behavioral disturbance Counseled Patient/Family Regarding: Studies Performed, Diagnosis, Need For Followup - Disposition Disposition: Routine/Home Disposition Time: 21:30 Condition: STABLE Additional Instructions: Thank you for letting us take care of you today. You were treated for dementia, aggressive behavior. The emergency medical care you received today was directed at your acute symptoms. Return to the Emergency Department if your symptoms worsen, do not improve, or if you have any other problems. Please follow up with referral provided by crisis. Bring any paperwork you were given at discharge with you along with any medications you are taking to your follow up visit. Our treatment cannot replace ongoing medical care by a primary care provider (PCP) outside of the emergency department. Thank you for allowing the [facility] team to be part of your care today. Instructions: Dementia (ED) Forms: [employer] (Yoruba) Print Language: TURKISH - PA / DOBIE MAN / Resident Statement / has reviewed & agrees with the documentation as recorded.
[2017-11-24 22:20] LABS: SQUAMOUS EPITHIAL 2 /hpf (0-5); URINE AMORPHOUS SEDIMENT OCC /ul (<OCC); URINE BACTERIA RARE (<OCC); URINE BILIRUBIN NEGATIVE (NEGATIVE); URINE BLOOD NEGATIVE (NEGATIVE); URINE CLARITY CLOUDY (Clear); URINE COLOR YELLOW (YELLOW); URINE GLUCOSE (UA) NEG (Normal); URINE LEUKOCYTE ESTERASE NEG Leu/uL (Negative); URINE PROTEIN NEGATIVE (NEGATIVE); URINE UROBILINOGEN 0.2-1.0 mg/dL (0.2-1.0)
[2017-11-24 22:34] LABS: BARBITURATES, UR NEGATIVE (NEGATIVE); BENZODIAZEPINES, UR NEGATIVE (NEGATIVE); OPIATES, UR NEGATIVE (NEGATIVE); PHENCYCLIDINE, UR NEGATIVE (NEGATIVE)
--- NOTE | 2017-11-25 09:00 | RAD ---
PROCEDURE: CHEST RADIOGRAPH, 1 VIEW HISTORY: psych eval COMPARISON: Frontal chest radiograph 11/13/2017. FINDINGS: LUNGS: No active pulmonary disease appreciable. PLEURA: No pneumothorax or pleural fluid seen. CARDIOVASCULAR: Cardiac silhouette appears prominent which is felt to be a function of technical magnification however the prior study was also performed AP and interval cardiomegaly is not excluded. Clinically correlate. No pulmonary vascular derangement appreciated nevertheless. OSSEOUS STRUCTURES: No significant abnormalities. VISUALIZED UPPER ABDOMEN: Normal. OTHER FINDINGS: None. IMPRESSION: Technical magnification is favored over intrinsic cardiomegaly. Clinically correlate. No pulmonary vascular derangement infiltrate or pneumothorax identified.
--- NOTE | 2017-11-25 19:33 | CARD ---
APPROVED REPORT EKG Measurement Heart [id number] <Conclusion> Normal sinus rhythm Nonspecific ST and T wave abnormality Abnormal ECG
== END 2017-11-24 23:01 | disposition home or self-care (01) ==
LOC: H.ER 17:39
DX: F02.81 Dementia in other diseases classified elsewhere, unspecified severity, with behavioral disturbance (principal); E78.00 Pure hypercholesterolemia, unspecified; G30.9 Alzheimer's disease, unspecified; I10 Essential (primary) hypertension

== ENCOUNTER 2017-11-27 15:53 | Emergency (ER) | payer MEDICARE, MEDICAID ==
[2017-11-27 16:18] VITALS: BP 138/75; PULSE 81; RESP 16; TEMP 97.8; O2SAT 99
[2017-11-27 16:19] VITALS: BMI 24.6
[2017-11-27 18:14] LABS: BARBITURATES, UR NEGATIVE (NEGATIVE); BENZODIAZEPINES, UR NEGATIVE (NEGATIVE); OPIATES, UR NEGATIVE (NEGATIVE); PHENCYCLIDINE, UR NEGATIVE (NEGATIVE)
[2017-11-27 18:15] LABS: BASO # 0.1 K/uL (0.0-0.2); BASO % 0.7 % (0.0-2.0); EOS # 0.2 K/uL (0.0-0.7); EOS % 2.1 % (0.0-4.0); HEMOGLOBIN 12.3 g/dL (12.0-16.0); LYMPH # 1.9 K/uL (1.0-4.3); LYMPH % 22.8 % (20.0-40.0); MEAN CELL VOLUME 87.7 fl (81.0-99.0); MEAN CORPUSCULAR HEMOGLOBIN 28.1 pg (27.0-31.0); MEAN CORPUSCULAR HGB CONC 32.1 g/dL (33.0-37.0); MEAN PLATELET VOLUME 9.3 fl (7.2-11.7); MONO # 0.7 K/uL (0.0-0.8); MONO % 8.2 % (0.0-10.0); NEUT # 5.6 K/uL (1.8-7.0); NEUT % 66.2 % (50.0-75.0); NRBC % 0.1 % (0.0-0.0); RBC 4.38 Mil/uL (3.80-5.20); RED CELL DISTRIBUTION WIDTH 14.7 % (11.5-14.5); WHITE BLOOD COUNT 8.4 K/uL (4.8-10.8)
[2017-11-27 18:34] LABS: ALB/GLOB RATIO 1.1 (1.0-2.1); ALBUMIN 3.7 g/dL (3.5-5.0); ALT/SGPT 24 U/L (9-52); AST/SGOT 30 U/L (14-36); BLOOD UREA NITROGEN 22 mg/dl (7-17); CALCIUM 9.1 mg/dL (8.4-10.2); GFR AFRICAN-AMERICAN > 60; GFR NON-AFRICAN AMERICAN 60
--- NOTE | 2017-11-27 18:47 | ED PDOC ---
HPI: Psych/Substance Abuse Time Seen by Provider: 11/27/17 16:58 Chief Complaint (Nursing): Psychiatric Evaluation Chief Complaint (Provider): Psych evaluation ED Caveat: Dementia History Per: Family History/Exam Limitations: no limitations Additional Complaint(s): Patient is an 82 y/o female with a past medical history of dementia brought to the emergency department by her family for increasing aggression at home. Patient was seen last week for a similar complaint and was discharged from the ED. Family member does not have POA yet. Per family, denies any reports of fall , illness, fever, or other complaints. PCP: Dr. Harry Pickens Past Medical History Reviewed: Historical Data, Nursing Documentation, Vital Signs Vital Signs: Last Vital Signs Temp 97.8 F 11/27/17 16:20 Pulse 81 11/27/17 16:20 Resp 16 11/27/17 16:20 BP 138/75 11/27/17 16:20 Pulse Ox 99 11/27/17 16:20 - Medical History PMH: Dementia, HTN, Hypercholesterolemia Denies: Diabetes, Hepatitis, HIV, Seizures, Sexually Transmitted Disease - Surgical History Surgical History: Appendectomy, Cholecystectomy - Family History Family History: States: Unknown Family Hx - Home Medications Home Medications: Ambulatory Orders Medication Instructions Recorded Cholecalciferol [Vitamin D 1000 IU] 1,000 intlu PO DAILY #30 tab 11/22/17 Donepezil [Aricept] 5 mg PO HS #30 tab 11/22/17 Memantine [Namenda] 5 mg PO DAILY #30 tab 11/22/17 risperiDONE [RisperDAL] 0.5 mg PO DAILY@1300 #30 tab 11/22/17 - Allergies Allergies/Adverse Reactions: Allergies Allergy/AdvReac Type Severity Reaction Status Date / Time No Known Allergies Allergy Verified 11/12/17 17:56 Review of Systems ROS Statement: Except As Marked, All Systems Reviewed And Found Negative Review Of Systems: ROS cannot be obtained secondary to pt's inabilty to answer questions. (due to dementia) Physical Exam - Reviewed Nursing Documentation Reviewed: Yes Vital Signs Reviewed: Yes - Physical Exam Appears: Positive for: Well, Non-toxic, No Acute Distress Head Exam: Positive for: ATRAUMATIC, NORMAL INSPECTION, NORMOCEPHALIC Skin: Positive for: Normal Color, Warm, Dry Eye Exam: Positive for: Normal appearance Neck: Positive for: Normal Cardiovascular/Chest: Positive for: Regular Rate, Rhythm. Negative for: Murmur Respiratory: Positive for: Normal Breath Sounds. Negative for: Accessory Muscle Use, Respiratory Distress Gastrointestinal/Abdominal: Positive for: Normal Exam, Hernia (large ventral hernia for 20 years). Negative for: Tenderness Extremity: Positive for: Normal ROM. Negative for: Pedal Edema Neurologic/Psych: Positive for: Alert, Oriented (x1), Gait (stable) - Laboratory Results Result Diagrams: 11/27/17 17:55 11/27/17 17:55 - ECG O2 Sat by Pulse Oximetry: 99 (RA) Pulse Ox Interpretation: Normal Medical Decision Making Medical Decision Making: Time: 17:09 Initial plan: EKG Urinalysis Reevaluation Patient was seen by crisis. It was recommend to the family to obtain POA to facilitate admission to the geropsych unit. Daughter agrees to take patient home. Indications for return were discussed. Scribe Attestation: Documented by Radha Cristina, acting as a scribe for Jakob Shah III, DO. Provider Scribe Attestation: All medical record entries made by the Scribe were at my direction and personally dictated by me. I have reviewed the chart and agree that the record accurately reflects my personal performance of the history, physical exam, medical decision making, and the department course for this patient. I have also personally directed, reviewed, and agree with the discharge instructions and disposition. Disposition - Clinical Impression Clinical Impression: Dementia - Patient ED Disposition Is Patient to be Admitted: No Counseled Patient/Family Regarding: Studies Performed, Diagnosis, Need For Followup - Disposition Disposition: Routine/Home Disposition Time: 20:10 Condition: STABLE Additional Instructions: Return to ER for any concern for Mitali. Recommend obtaining power of contract attorney for future decision making. Instructions: Dementia (ED) Forms: [employer] (Kiswahili)
[2017-11-27 18:56] LABS: SQUAMOUS EPITHIAL 6 /hpf (0-5); URINE BACTERIA RARE (<OCC); URINE BILIRUBIN NEGATIVE (NEGATIVE); URINE BLOOD NEGATIVE (NEGATIVE); URINE CLARITY SLIGHTY-CLOUDY (Clear); URINE COLOR YELLOW (YELLOW); URINE GLUCOSE (UA) NEG (Normal); URINE LEUKOCYTE ESTERASE LARGE Leu/uL (Negative); URINE PROTEIN NEGATIVE (NEGATIVE); URINE UROBILINOGEN 0.2-1.0 mg/dL (0.2-1.0)
--- NOTE | 2017-11-29 11:24 | CARD ---
APPROVED REPORT EKG Measurement Heart [id number] <Conclusion> Normal sinus rhythm Normal ECG
== END 2017-11-27 20:18 | disposition home or self-care (01) ==
LOC: H.ER 15:53
DX: F03.90 Unspecified dementia, unspecified severity, without behavioral disturbance, psychotic disturbance, mood disturbance, and anxiety (principal); E78.00 Pure hypercholesterolemia, unspecified; I10 Essential (primary) hypertension

== ENCOUNTER 2018-06-04 19:21 | Inpatient (IN) | payer MEDICARE, OTHER ==
--- NOTE | 2018-06-04 19:52 | ED PDOC ---
HPI: SOB/CHF/COPD Time Seen by Provider: 06/04/18 19:34 Chief Complaint (Provider): Respiratory Distress History Per: Family (daughter) History/Exam Limitations: other (intubation) Onset/Duration Of Symptoms: Days Current Symptoms Are (Timing): Still Present Additional Complaint(s): 83 year old female brought in via EMS in respiratory distress. Patient was intubated on arrival. Her O2 saturation levels were 70% and increased with BVM. They intubated her using ketamine and rocuronium. Blood pressure started decreasing so EMS gave her a otal of 3 cc phenlyephrine. As per daughter, patient started to get short of breath today with sputum. Daughter, who is acting as health care proxy, reports mother requests DNR status. Denies fever and vomiting as well as any meals today. PMD: Dr. Harry Pickens Past Medical History Reviewed: Historical Data, Nursing Documentation, Vital Signs Vital Signs: Last Vital Signs Temp 99.1 F 06/07/18 04:00 Pulse 103 H 06/07/18 06:00 Resp 12 06/07/18 06:00 BP 77/48 L 06/07/18 06:00 Pulse Ox 98 06/07/18 06:00 - Medical History PMH: Dementia, HTN, Hypercholesterolemia Denies: Diabetes, Hepatitis, HIV, Seizures, Sexually Transmitted Disease - Surgical History Surgical History: Appendectomy, Cholecystectomy - Family History Family History: States: Unknown Family Hx - Home Medications Home Medications: Ambulatory Orders Medication Instructions Recorded Donepezil [Aricept] 5 mg PO HS #30 tab 11/22/17 Memantine [Namenda] 5 mg PO DAILY #30 tab 11/22/17 ALPRAZolam [Xanax] 1 tab PO HS PRN 06/05/18 Collagenase [Santyl] 1 appl TOP DAILY 06/05/18 Divalproex [Depakote DR TAB] 250 tcp PO TID 06/05/18 Olanzapine [Zyprexa] 5 mg PO DAILY 06/05/18 - Allergies Allergies/Adverse Reactions: Allergies Allergy/AdvReac Type Severity Reaction Status Date / Time No Known Allergies Allergy Verified 11/12/17 17:56 Review of Systems ROS Statement: Except As Marked, All Systems Reviewed And Found Negative Constitutional: Negative for: Fever Respiratory: Positive for: Shortness of Breath Gastrointestinal: Negative for: Vomiting Physical Exam - Reviewed Nursing Documentation Reviewed: Yes Vital Signs Reviewed: Yes - Physical Exam Appears: Positive for: In Acute Distress (patient is intubated) Head Exam: Positive for: ATRAUMATIC, NORMAL INSPECTION, NORMOCEPHALIC Skin: Positive for: Normal Color, Warm, DRY Cardiovascular/Chest: Positive for: Tachycardia (with regular rhythm) Respiratory: Positive for: Rhonchi (bilateral) Gastrointestinal/Abdominal: Positive for: Normal Exam, Soft. Negative for: Tenderness - Laboratory Results Result Diagrams: 06/05/18 04:20 06/05/18 07:27 - ECG Pulse Ox Interpretation: Normal - Critical Care Total Time (In Min): 60 Medical Decision Making Medical Decision Makin:34 Impression: respiratory distress Initial Plan: --VBG --EKG --CMP --Mag Phos --CBC --PTT --Prothrombin --CXR --UA --Blood cx --urine cx --ventilator Chest x-ray FINDINGS: Lungs: There is bibasilar opacities suspicious for pneumonitis or atelectasis and possible bilateral pleural effusions. Pleural space: Normal. No pneumothorax. Heart/Mediastinum: Normal. No cardiomegaly. Vasculature: There are atherosclerotic aortic calcifications. Bones/joints: Unremarkable for age. IMPRESSION: There is bibasilar opacities suspicious for pneumonitis or atelectasis and possible bilateral pleural effusions. 21:20 ETT tube moved from 14 cm @ lip line to 18 cm. 21:25 Daughter states her son is on way with Power of Retail Sales Director paperwork. Verbally maintains DNR status. ---- Scribe Attestation: Documented by Lizette Walton, acting as a scribe for Lesly Hare MD Provider Scribe Attestation: All medical record entries made by the Scribe were at my direction and personally dictated by me. I have reviewed the chart and agree that the record accurately reflects my personal performance of the history, physical exam, medical decision making, and the department course for this patient. I have also personally directed, reviewed, and agree with the discharge instructions and disposition. Disposition - Clinical Impression Clinical Impression: Bilateral pneumonia, Dehydration, Respiratory failure - Patient ED Disposition Is Patient to be Admitted: Yes - Disposition Disposition Time: 21:20 Condition: CRITICAL - Pt Status Changed To: Hospital Disposition Of: Inpatient - Admit Certification Admit to Inpatient:: After my assessment, the patient will require hospitalization for at least two midnights. This is because of the severity of symptoms shown, intensity of services needed, and/or the medical risk in this patient being treated as an outpatient. - POA Present On Arrival: Pressure Ulcer
[2018-06-04 19:59] LABS: BASO % 0.1 % (0.0-2.0); EOS % 0.1 % (0.0-4.0); HEMOGLOBIN 10.6 g/dL (12.0-16.0); LYMPH # 0.5 K/uL (1.0-4.3); LYMPH % 4.1 % (20.0-40.0); MEAN CELL VOLUME 90.8 fl (81.0-99.0); MEAN CORPUSCULAR HEMOGLOBIN 29.4 pg (27.0-31.0); MEAN CORPUSCULAR HGB CONC 32.3 g/dL (33.0-37.0); MEAN PLATELET VOLUME 7.7 fl (7.2-11.7); MONO # 0.3 K/uL (0.0-0.8); MONO % 2.9 % (0.0-10.0); NEUT # 10.7 K/uL (1.8-7.0); NEUT % 92.8 % (50.0-75.0); PLATELET COUNT 318 K/uL (130-400); RBC 3.61 Mil/uL (3.80-5.20); RED CELL DISTRIBUTION WIDTH 14.9 % (11.5-14.5); WHITE BLOOD COUNT 11.6 K/uL (4.8-10.8)
[2018-06-04 20:08] LABS: ALB/GLOB RATIO 0.6 (1.0-2.1); ALBUMIN 2.3 g/dL (3.5-5.0); CALCIUM 7.9 mg/dL (8.4-10.2); INR 1.5 (0.9-1.2); PARTIAL THROMBOPLASTIN TIME 28.4 Seconds (25.6-37.1); PROTHROMBIN TIME 16.4 Seconds (9.8-13.1)
[2018-06-04] MEDS ORDERED: Potassium Chloride 20 mEq 100 ML IVPB STA (20:10)
[2018-06-04] MEDS ORDERED: Cefepime 1 GM in Sodium Chloride 0.9% 100 ML IVPB STA (20:11)
[2018-06-04] MEDS ORDERED: Ciprofloxacin 400mg/200ml D5W 400 MG/200 ML BAG IVPB STA (20:11)
[2018-06-04] MEDS ORDERED: Vancomycin 1 GM in Sodium Chloride 0.9% 100 ML IVPB STA (20:11)
[2018-06-04] MEDS ORDERED: Ciprofloxacin 400mg/200ml D5W 400 MG/200 ML BAG IVPB ONE (20:41)
[2018-06-04] MEDS ORDERED: Potassium CL 10 MEQ/50 ML 0 ML ONE (20:43)
[2018-06-04] MEDS ORDERED: Sodium Chloride 3% for Inhalation 4 ML VIAL.NEB IH PRN (21:40)
[2018-06-04 21:55] LABS: BANDS 8 % (0-2); LYMPHOCYTE 6 % (20-50); MONOCYTE 3 % (0-10); NEUTROPHIL 83 % (42-75); TOTAL CELLS COUNTED 100
[2018-06-04] MEDS ORDERED: Sodium Chloride 0.9% 1,000 ML IV STA (21:55)
[2018-06-04 21:57] LABS: ANISOCYTOSIS MODERATE; HYPOCHROMIC SLIGHT; POIKILOCYTOSIS SLIGHT
[2018-06-04 21:58] LABS: TOXIC GRANULATION PRESENT
[2018-06-04 21:59] LABS: SQUAMOUS EPITHIAL 4 /hpf (0-5); URINE BACTERIA MANY (<OCC); URINE BILIRUBIN NEGATIVE (NEGATIVE); URINE BLOOD LARGE (NEGATIVE); URINE CLARITY CLOUDY (Clear); URINE COLOR AMBER (YELLOW); URINE GLUCOSE (UA) NEG (Normal); URINE LEUKOCYTE ESTERASE MOD Leu/uL (Negative); URINE PROTEIN 30 mg/dL (NEGATIVE)
[2018-06-04 22:04] LABS: PLATELET ESTIMATE NORMAL (NORMAL)
--- NOTE | 2018-06-04 22:50 | CP.PCM.HP ---
History of Present Illness - History of Present Illness History of Present Illness: CC: SOB This is an 83 year old female with a past medical history of hypertension and hypercholesterolemia, as well as schizophrenia, who was brought in via EMS due to acute respiratory distress. According to the daughter, the patient had been short of breath earlier today with cough and sputum production. EMS gave the patient ketamine and rocuronium and performed intubation successfully. In the ED , the patient was noted to have patchy bilateral infiltrates consistent with pneumonia. Lab values show Na 150, K 3.3, BUN 67, Cr 1.4. She is being admitted to ICU for further workup and management of acute respiratory failure secondary to pneumonia. UTI was also found on urinalysis. She was given Vancomycin and Cipro in the ED. PMHx: HTN, Hypercholestrolemia PSHx: Appendectomy, Cholecystectomy Allergies: N.K.D.A SHx: Denies of smoking, EtOH use or illicit drug usage FHx: Noncontributory PMD: Dr. Harry Pickens Health proxy: Peggy Sherman, daughter Present on Admission - Present on Admission Any Indicators Present on Admission: No History of DVT/PE: No History of Uncontrolled Diabetes: No Review of Systems - Review of Systems Systems not reviewed;Unavailable: Intubated Past Patient History - Infectious Disease Hx of Infectious Diseases: None - Past Medical History & Family History Past Medical History?: Yes Past Family History: Reviewed and not pertinent - Past Social History Smoking Status: Never Smoked Alcohol: None Drugs: Denies - CARDIAC Hx Hypercholesterolemia: Yes Hx Hypertension: Yes - PULMONARY Hx Tuberculosis: No - NEUROLOGICAL Hx Dementia: Yes Hx Seizures: No - HEMATOLOGICAL/ONCOLOGICAL Hx Human Immunodeficiency Virus (HIV): No - MUSCULOSKELETAL/RHEUMATOLOGICAL Hx Falls: Yes (5mons ago) - GENITOURINARY/GYNECOLOGICAL Hx Sexually Transmitted Disorders: No - PSYCHIATRIC Hx Bipolar Disorder: Yes Hx Substance Use: No - SURGICAL HISTORY Hx Appendectomy: Yes Hx Cholecystectomy: Yes - ANESTHESIA Hx Anesthesia: Yes Hx Anesthesia Reactions: No Meds Allergies/Adverse Reactions: Allergies Allergy/AdvReac Type Severity Reaction Status Date / Time No Known Allergies Allergy Verified 11/12/17 17:56 Physical Exam - Additional Findings Additional findings: Physical exam: Constitutional- Intubated, appears acutely ill, elderly female Head- NCAT, PERRL Eye- PERRL, EOMI ENT- normal exam, MMM. Neck- normal inspection, supple, no JVD Respiratory- CTAB, bilateral rales, no wheezing, scattered rhonchi. Cardiovascular- RRR, +S1, +S2 no MRG GI/Abdominal- normal bowel sounds, soft, no mass, no hsm Skin- warm, dry Extremities Exam- normal capillary refill, normal inspection Neurological Exam- unable to be assessed Psych- unable to be assessed. Results - Vital Signs Recent Vital Signs: Last Vital Signs Temp 99.7 F H 06/04/18 19:46 Pulse 108 H 06/04/18 19:25 Resp 15 06/04/18 19:25 BP 116/55 L 06/04/18 19:25 Pulse Ox 98 06/04/18 19:25 - Labs Result Diagrams: 06/04/18 19:30 06/04/18 19:30 Labs: Laboratory Results - last 24 hr 06/04/18 06/04/18 06/04/18 19:24 19:30 19:30 WBC 11.6 H RBC 3.61 L Hgb 10.6 L Hct 32.8 L MCV 90.8 D MCH 29.4 MCHC 32.3 L RDW 14.9 H Plt Count 318 D MPV 7.7 Neut % (Auto) 92.8 H Lymph % (Auto) 4.1 L [place] % (Auto) 2.9 Eos % (Auto) 0.1 Baso % (Auto) 0.1 Neut # (Auto) 10.7 H Lymph # (Auto) 0.5 L [place] # (Auto) 0.3 Eos # (Auto) 0.0 Baso # (Auto) 0.0 Neutrophils % (Manual) 83 H Band Neutrophils % 8 H Lymphocytes % (Manual) 6 L Monocytes % (Manual) 3 Toxic Granulation Present Platelet Estimate Normal Hypochromasia (manual) Slight Poikilocytosis (manual Slight Anisocytosis (manual) Moderate PT INR APTT Sodium 150 H Potassium 3.3 L Chloride 116 H Carbon Dioxide 21 L Anion Gap 16 BUN 67 H Creatinine 1.4 H Est GFR ( Amer) 43 Est GFR (Non-Af Amer) 36 POC Glucose (mg/dL) 132 H Random Glucose 131 H Calcium 7.9 L Phosphorus 4.2 Magnesium 2.0 Total Bilirubin 0.7 AST 36 ALT 22 Alkaline Phosphatase 91 Total Protein 6.2 L Albumin 2.3 L D Globulin 3.9 Albumin/Globulin Ratio 0.6 L Urine Color Urine Clarity Urine pH Ur Specific [place] Urine Protein Urine Glucose (UA) Urine Ketones Urine Blood Urine Nitrate Urine Bilirubin Urine Urobilinogen Ur Leukocyte Esterase Urine RBC (Auto) Urine Microscopic WBC Ur Squamous Epith Cells Urine Bacteria 06/04/18 06/04/18 19:30 20:15 WBC RBC Hgb Hct MCV MCH MCHC RDW Plt Count MPV Neut % (Auto) Lymph % (Auto) [place] % (Auto) Eos % (Auto) Baso % (Auto) Neut # (Auto) Lymph # (Auto) [place] # (Auto) Eos # (Auto) Baso # (Auto) Neutrophils % (Manual) Band Neutrophils % Lymphocytes % (Manual) Monocytes % (Manual) Toxic Granulation Platelet Estimate Hypochromasia (manual) Poikilocytosis (manual Anisocytosis (manual) PT 16.4 H INR 1.5 H APTT 28.4 Sodium Potassium Chloride Carbon Dioxide Anion Gap BUN Creatinine Est GFR ( Amer) Est GFR (Non-Af Amer) POC Glucose (mg/dL) Random Glucose Calcium Phosphorus Magnesium Total Bilirubin AST ALT Alkaline Phosphatase Total Protein Albumin Globulin Albumin/Globulin Ratio Urine Color [place] Urine Clarity Cloudy Urine pH 5.0 Ur Specific [place] 1.016 Urine Protein 30 Urine Glucose (UA) Neg Urine Ketones Negative Urine Blood Large Urine Nitrate Negative Urine Bilirubin Negative Urine Urobilinogen 4.0 H Ur Leukocyte Esterase Mod Urine RBC (Auto) 1 Urine Microscopic WBC 14 H Ur Squamous Epith Cells 4 Urine Bacteria Many H Assessment & Plan - Assessment and Plan (Free Text) Plan: This is an 83 year old female with a past medical history of hypertension and hypercholesterolemia, as well as schizophrenia, who was brought in via EMS due to acute respiratory distress. According to the daughter, the patient had been short of breath earlier today with cough and sputum production. EMS gave the patient ketamine and rocuronium and performed intubation successfully. In the ED , the patient was noted to have patchy bilateral infiltrates consistent with pneumonia. Lab values show Na 150, K 3.3, BUN 67, Cr 1.4. She is being admitted to ICU for further workup and management of acute respiratory failure secondary to pneumonia. UTI was also found on urinalysis. She was given Vancomycin and Cipro in the ED. 1) Acute respiratory failure with hypoxemia secondary to bilateral pneumonia - Admit to ICU - Continue Vancomycin and Rocephin for broad spectrum coverage - Vitals per ICU protocol - Blood, urine, Sputum cultures - Procalcitonin - F/u Lactic acid level - Vent management, f/u ABG - NPO 2) Sepsis secondary to pneumonia and UTI - Acute - Management as above - Continue NS at 125 cc/ hour 3) Hypertension - Normotensive at present - Monitor 4) Hypercholesterolemia - Restart home med when no longer intubated 5) AMIRA, likely due to dehydration - Continue IV normal saline overnight 6) Hypovolemic hypernatremia - Continue Normal saline, recheck sodium in AM 7) Hypokalemia - IV repletion in ED, check in AM
[2018-06-04] MEDS ORDERED: Vancomycin 1 g Inj ONE (23:23)
[2018-06-04 23:36] LABS: VENOUS BLOOD GAS BASE EXCESS -7.5 mmol/L (0.0-2.0); VENOUS BLOOD GAS PCO2 62 mmHg (40-60); VENOUS BLOOD GAS PO2 82 mm/Hg (30-55); VENOUS BLOOD PH 7.16 (7.32-7.43)
[2018-06-05] MEDS ORDERED: Sodium Chloride 0.9% 500 ML IV ONE ×2 (01:08→04:41)
[2018-06-05] MEDS ORDERED: Sodium Chloride 0.9% 1,000 ML IV STA (01:22)
[2018-06-05 06:02] LABS: BASO % 0.1 % (0.0-2.0); HEMOGLOBIN 11.4 g/dL (12.0-16.0); LYMPH # 0.5 K/uL (1.0-4.3); LYMPH % 5.9 % (20.0-40.0); MEAN CELL VOLUME 93.7 fl (81.0-99.0); MEAN CORPUSCULAR HEMOGLOBIN 29.3 pg (27.0-31.0); MEAN CORPUSCULAR HGB CONC 31.3 g/dL (33.0-37.0); MEAN PLATELET VOLUME 8.1 fl (7.2-11.7); MONO # 0.3 K/uL (0.0-0.8); MONO % 2.9 % (0.0-10.0); NEUT # 8.3 K/uL (1.8-7.0); NEUT % 91.1 % (50.0-75.0); PLATELET COUNT 235 K/uL (130-400); RBC 3.88 Mil/uL (3.80-5.20); RED CELL DISTRIBUTION WIDTH 15.8 % (11.5-14.5); WHITE BLOOD COUNT 9.2 K/uL (4.8-10.8)
[2018-06-05 06:02] LABS: ABG ALLEN TEST YES; ARTERIAL BLOOD GAS HCO3 18.7 mmol/L (21-28); ARTERIAL BLOOD GAS HEMOGLOBIN 10.5 g/dL (11.7-17.4); ARTERIAL BLOOD GAS O2 CAPACITY 14.7 mL/dL (16-24); ARTERIAL BLOOD GAS O2 CONTENT 14.7 ML/dL (15-23); ARTERIAL BLOOD GAS O2 SAT 100.1 % (95-98); ARTERIAL BLOOD GAS PCO2 40 mm/Hg (35-45); ARTERIAL BLOOD GAS PH 7.27 (7.35-7.45); ARTERIAL BLOOD GAS PO2 176 mm/Hg (80-100); ARTERIAL BLOOD GAS TCO2 19.6 mmol/L (22-28)
[2018-06-05] MEDS ORDERED: Sodium Chloride 0.9% 1,000 ML IV SCH (06:15)
[2018-06-05] MEDS ORDERED: Levalbuterol 1.25 MG/3 ML Inhal Soln UD INH PRN (07:00)
[2018-06-05] MEDS: Ipratropium 0.02% Inhal Soln (0.5 mg/2.5 ml) UD IH SCH ×3 (07:20→23:56)
--- NOTE | 2018-06-05 08:25 | RAD ---
Date of service: 06/04/2018 HISTORY: ETT moved COMPARISON: 06/04/2018 at 7:50 p.m.. FINDINGS: LUNGS: There is redemonstration of airspace disease in the right lower lobe and left perihilar region. There is also moderate pulmonary venous congestion. PLEURA: Suspect layering pleural effusions, no pneumothorax apparent. CARDIOVASCULAR: Normal. OSSEOUS STRUCTURES: No significant abnormalities. VISUALIZED UPPER ABDOMEN: Normal. OTHER FINDINGS: None. IMPRESSION: Redemonstration of right lower lobe and left perihilar airspace disease and layering pleural effusions. Findings may represent multifocal pneumonia or pulmonary edema.
--- NOTE | 2018-06-05 08:26 | RAD ---
Date of service: 06/04/2018 HISTORY: ETT moved COMPARISON: 06/04/2018 at 9:37 p.m. FINDINGS: The endotracheal tube terminates 1.8 cm proximal to the buzz. LUNGS: There is worsening airspace disease in the right lower lobe and left lung. PLEURA: Layering pleural effusions, no pneumothorax apparent. CARDIOVASCULAR: Normal. OSSEOUS STRUCTURES: No significant abnormalities. VISUALIZED UPPER ABDOMEN: Normal. OTHER FINDINGS: None. IMPRESSION: Endotracheal tube terminates 1.8 cm proximal to the buzz. Findings are most compatible with pulmonary edema and pleural effusions, worse in the left lung.
[2018-06-05 08:30] LABS: ALB/GLOB RATIO 0.6 (1.0-2.1); ALBUMIN 2.3 g/dL (3.5-5.0); CALCIUM 7.5 mg/dL (8.4-10.2)
--- NOTE | 2018-06-05 08:59 | RAD ---
Date of service: 06/04/2018 HISTORY: Sepsis Patient COMPARISON: 11/24/2017 FINDINGS: Endotracheal tube terminates above the thoracic inlet. LUNGS: There is multifocal airspace disease in the right lower lobe and left lower lobe. There is also pulmonary venous. PLEURA: Bilateral pleural effusions, no pneumothorax apparent. CARDIOVASCULAR: Normal. OSSEOUS STRUCTURES: No significant abnormalities. VISUALIZED UPPER ABDOMEN: Normal. OTHER FINDINGS: None. IMPRESSION: Endotracheal tube is above the thoracic inlet. Repositioning is recommended. Findings likely represent congestive heart failure with presumable pulmonary edema and pleural effusions. Airspace disease in the lower lobes could represent atelectasis however multifocal pneumonia is not excluded. Follow-up is advised.
--- NOTE | 2018-06-05 09:10 | CARD ---
APPROVED REPORT Date of service: 06/04/2018 EKG Measurement Heart [id number] [place] [id number] [id number] <Conclusion> Sinus tachycardia ST & T wave abnormality, consider inferior ischemia Abnormal ECG
[2018-06-05 09:35] LABS: LYMPHOCYTE 12 % (20-50); METAMYELOCYTE 2 % (0-0); MONOCYTE 6 % (0-10); MYELOCYTE 1 % (0-0); NEUTROPHIL 58 % (42-75); TOTAL CELLS COUNTED 100
[2018-06-05 09:36] LABS: ANISOCYTOSIS SLIGHT; HYPOCHROMIC SLIGHT; TOXIC GRANULATION PRESENT
[2018-06-05 09:39] LABS: PLATELET ESTIMATE NORMAL (NORMAL)
[2018-06-05] MEDS ORDERED: Lactated Ringer's 1,000 ML IV SCH (10:00)
[2018-06-05] MEDS ORDERED: Artificial Tears Opht Soln OU PRN (11:23)
[2018-06-05] MEDS ORDERED: Lubricant Eye Drops UD OU PRN (13:15)
--- NOTE | 2018-06-05 15:24 | CP.PCM.PN ---
Objective - Vital Signs/Intake and Output Vital Signs (last 24 hours): Temp Pulse Resp BP Pulse Ox 98.6 F 114 H 29 H 112/67 100 06/05/18 12:00 06/05/18 14:00 06/05/18 14:00 06/05/18 14:00 06/05/18 14:00 Intake and Output: 06/05/18 06/05/18 06:59 18:59 Intake Total 1925 500 Output Total 100 50 Balance 1825 450 - Medications Medications: Current Medications Acetaminophen (Tylenol 650 Mg Supp) 650 mg TX Q6H PRN PRN Reason: Fever >100.4 F Artificial Tears (Refresh Opth Soln) 0.3 ml OU Q4 PRN PRN Reason: Dry eyes Heparin Sodium (Porcine) (Heparin) 5,000 units SC Q8 LINDA PRN Reason: Protocol Last Admin: 06/05/18 09:21 Dose: 5,000 units Ceftriaxone Sodium 1 gm/ (Sodium Chloride) 100 mls @ 100 mls/hr IVPB DAILY LINDA PRN Reason: Protocol Last Admin: 06/05/18 09:22 Dose: 100 mls/hr Lactated Ringer's (Lactated Ringer's) 1,000 mls @ 100 mls/hr IV .Q10H [facility] Last Admin: 06/05/18 10:30 Dose: 100 mls/hr Vancomycin HCl 1 gm/ Sodium (Chloride) 250 mls @ 166.667 mls/hr IVPB DAILY@ 2200 LINDA PRN Reason: Protocol Ipratropium [place] (Atrovent) 0.5 mg IH RQ8 [facility] Last Admin: 06/05/18 07:20 Dose: 0.5 mg Morphine Sulfate (Morphine) 2 mg IVP Q4 PRN PRN Reason: Pain, moderate (4-7) Last Admin: 06/05/18 10:28 Dose: 2 mg Pantoprazole Sodium (Protonix Inj) 40 mg IVP DAILY [facility] Last Admin: 06/05/18 09:22 Dose: 40 mg - Labs Labs: 06/05/18 04:20 06/05/18 07:27 PT 16.4 Seconds (9.8-13.1) H 06/04/18 19:30 INR 1.5 (0.9-1.2) H 06/04/18 19:30 APTT 28.4 Seconds (25.6-37.1) 06/04/18 19:30
--- NOTE | 2018-06-05 15:28 | CP.PCM.HP ---
History of Present Illness - History of Present Illness History of Present Illness: CC: Respiratory failure. 83 y/o F, status DNR, with chronic medical conditions likely Dementia, Schizophrenia, HTN, Hypercholesterolemia, brought to ER [facility], for acute onset of severe SOB, associated to cough, productive thick yellowish sputum, non bloody on DOA, EMS was called and while in the field Pt went into respiratory distress associated to low saturation ( 70%). Pt had Ketamine and Rocuronium and was intubated while in the field. As per daughter, Pt woke up on DOA not feeling well with SOB and intermittent cough. Worsening symptom: Found with Multifocal PNA/CHF on CXR, Sinus tachycardia on EKG. Multiple areas of skin breakdown/ skin tears/ DTI. Aggravated factor: Unable to answer questions, movements. As per daughter: No fever, chills, n/v/d, abdominal pain, CP, syncope, LOC, sick contact, recent travel out of [facility]. Present on Admission - Present on Admission Any Indicators Present on Admission: No Review of Systems - Review of Systems Systems not reviewed;Unavailable: Acuity of Condition, Intubated Past Patient History - Infectious Disease Hx of Infectious Diseases: None - Past Medical History & Family History Past Medical History?: Yes Pertinent Family History: Unknown - Past Social History Smoking Status: Former Smoker Alcohol: None Drugs: Denies Home Situation {Lives}: With Family - CARDIAC Hx Cardiac Disorders: Yes Hx Hypercholesterolemia: Yes Hx Hypertension: Yes - PULMONARY Hx Respiratory Disorders: No Hx Tuberculosis: No - NEUROLOGICAL Hx Neurological Disorder: Yes Hx Dementia: Yes Hx Seizures: No - HEENT Hx HEENT Problems: No - RENAL Hx Chronic Kidney Disease: No - ENDOCRINE/METABOLIC Hx Endocrine Disorders: No - HEMATOLOGICAL/ONCOLOGICAL Hx Blood Disorders: No Hx Human Immunodeficiency Virus (HIV): No - MUSCULOSKELETAL/RHEUMATOLOGICAL Hx Musculoskeletal Disorders: Yes Hx Falls: Yes (5 months ago) Other/Comment: HX of pelvis facture - GASTROINTESTINAL Hx Gastrointestinal Disorders: No - GENITOURINARY/GYNECOLOGICAL Hx Genitourinary Disorders: No Hx Sexually Transmitted Disorders: No - PSYCHIATRIC Hx Psychophysiologic Disorder: Yes Hx Bipolar Disorder: Yes Hx Substance Use: No - SURGICAL HISTORY Hx Surgeries: Yes Hx Appendectomy: Yes Hx Cholecystectomy: Yes - ANESTHESIA Hx Anesthesia: Yes Hx Anesthesia Reactions: No Meds Allergies/Adverse Reactions: Allergies Allergy/AdvReac Type Severity Reaction Status Date / Time No Known Allergies Allergy Verified 11/12/17 17:56 Physical Exam - Constitutional Appears: Chronically Ill - Head Exam Head Exam: NORMAL INSPECTION - Eye Exam Eye Exam: PERRL - ENT Exam Additional comments: Intubated - Neck Exam Neck exam: Positive for: Normal Inspection - Respiratory Exam Respiratory Exam: Decreased Breath Sounds (b/l), Rhonchi (b/l) - Cardiovascular Exam Cardiovascular Exam: Tachycardia, REGULAR RHYTHM - GI/Abdominal Exam GI & Abdominal Exam: Normal Bowel Sounds, Soft - Extremities Exam Extremities exam: Positive for: normal inspection - Back Exam Additional comments: Sacral ulcer - Neurological Exam Additional comments: Intubated, unable to assess - Psychiatric Exam Additional comments: Intubated, unable to assess. - Skin Skin Exam: Erythema (multiple sites lower extremities.), Warm Results - Vital Signs Recent Vital Signs: Last Vital Signs Temp 98.6 F 06/05/18 12:00 Pulse 114 H 06/05/18 14:00 Resp 29 H 06/05/18 14:00 BP 112/67 06/05/18 14:00 Pulse Ox 100 06/05/18 14:00 reviewed Wyatt - Labs Result Diagrams: 06/05/18 04:20 06/05/18 07:27 Labs: Laboratory Results - last 24 hr 06/04/18 06/04/18 06/04/18 19:24 19:30 19:30 WBC 11.6 H RBC 3.61 L Hgb 10.6 L Hct 32.8 L MCV 90.8 D MCH 29.4 MCHC 32.3 L RDW 14.9 H Plt Count 318 D MPV 7.7 Neut % (Auto) 92.8 H Lymph % (Auto) 4.1 L Collier % (Auto) 2.9 Eos % (Auto) 0.1 Baso % (Auto) 0.1 Neut # (Auto) 10.7 H Lymph # (Auto) 0.5 L Collier # (Auto) 0.3 Eos # (Auto) 0.0 Baso # (Auto) 0.0 Neutrophils % (Manual) 83 H Band Neutrophils % 8 H Lymphocytes % (Manual) 6 L Monocytes % (Manual) 3 Metamyelocytes % Myelocytes % Toxic Granulation Present Platelet Estimate Normal Hypochromasia (manual) Slight Poikilocytosis (manual Slight Anisocytosis (manual) Moderate PT INR APTT pCO2 pO2 HCO3 ABG pH ABG Total CO2 ABG O2 Saturation ABG O2 Content ABG Base Excess ABG Hemoglobin ABG Carboxyhemoglobin POC ABG HHb (Measured) ABG Methemoglobin ABG O2 Capacity [place] Test VBG pH VBG pCO2 VBG HCO3 VBG Total CO2 VBG O2 Sat (Calc) VBG Base Excess VBG Potassium A-a O2 Difference Hgb O2 Saturation Glucose Lactate Vent Mode Mechanical Rate FiO2 Tidal Volume PEEP Crit Value Called To Crit Value Called By Crit Value Read Back Blood Gas Notified Time Sodium 150 H Potassium 3.3 L Chloride 116 H Carbon Dioxide 21 L Anion Gap 16 BUN 67 H Creatinine 1.4 H Est GFR ( Amer) 43 Est GFR (Non-Af Amer) 36 POC Glucose (mg/dL) 132 H Random Glucose 131 H Calcium 7.9 L Phosphorus 4.2 Magnesium 2.0 Total Bilirubin 0.7 AST 36 ALT 22 Alkaline Phosphatase 91 Total Protein 6.2 L Albumin 2.3 L D Globulin 3.9 Albumin/Globulin Ratio 0.6 L Venous Blood Potassium Urine Color Urine Clarity Urine pH Ur Specific [place] Urine Protein Urine Glucose (UA) Urine Ketones Urine Blood Urine Nitrate Urine Bilirubin Urine Urobilinogen Ur Leukocyte Esterase Urine RBC (Auto) Urine Microscopic WBC Ur Squamous Epith Cells Urine Bacteria 06/04/18 06/04/18 06/04/18 19:30 19:50 20:15 WBC RBC Hgb Hct MCV MCH MCHC RDW Plt Count MPV Neut % (Auto) Lymph % (Auto) Collier % (Auto) Eos % (Auto) Baso % (Auto) Neut # (Auto) Lymph # (Auto) Collier # (Auto) Eos # (Auto) Baso # (Auto) Neutrophils % (Manual) Band Neutrophils % Lymphocytes % (Manual) Monocytes % (Manual) Metamyelocytes % Myelocytes % Toxic Granulation Platelet Estimate Hypochromasia (manual) Poikilocytosis (manual Anisocytosis (manual) PT 16.4 H INR 1.5 H APTT 28.4 pCO2 pO2 82 H HCO3 ABG pH ABG Total CO2 ABG O2 Saturation ABG O2 Content ABG Base Excess ABG Hemoglobin ABG Carboxyhemoglobin POC ABG HHb (Measured) ABG Methemoglobin ABG O2 Capacity [place] Test VBG pH 7.16 L* VBG pCO2 62 H VBG HCO3 18.9 VBG Total CO2 24.0 VBG O2 Sat (Calc) 97.0 H VBG Base Excess -7.5 L VBG Potassium 3.4 L A-a O2 Difference Hgb O2 Saturation Glucose 136 H Lactate 2.7 H Vent Mode Mechanical Rate FiO2 100.0 Tidal Volume PEEP Crit Value Called To Md glendy tierney Crit Value Called By 23 Crit Value Read Back Y Blood Gas Notified Time 2004 Sodium 145.0 Potassium Chloride 114.0 H Carbon Dioxide Anion Gap BUN Creatinine Est GFR ( Amer) Est GFR (Non-Af Amer) POC Glucose (mg/dL) Random Glucose Calcium Phosphorus Magnesium Total Bilirubin AST ALT Alkaline Phosphatase Total Protein Albumin Globulin Albumin/Globulin Ratio Venous Blood Potassium 3.4 L Urine Color [place] Urine Clarity Cloudy Urine pH 5.0 Ur Specific [place] 1.016 Urine Protein 30 Urine Glucose (UA) Neg Urine Ketones Negative Urine Blood Large Urine Nitrate Negative Urine Bilirubin Negative Urine Urobilinogen 4.0 H Ur Leukocyte Esterase Mod Urine RBC (Auto) 1 Urine Microscopic WBC 14 H Ur Squamous Epith Cells 4 Urine Bacteria Many H 06/05/18 06/05/18 06/05/18 04:20 05:57 07:27 WBC 9.2 RBC 3.88 Hgb 11.4 L Hct 36.4 MCV 93.7 D MCH 29.3 MCHC 31.3 L RDW 15.8 H Plt Count 235 MPV 8.1 Neut % (Auto) 91.1 H Lymph % (Auto) 5.9 L Collier % (Auto) 2.9 Eos % (Auto) 0.0 Baso % (Auto) 0.1 Neut # (Auto) 8.3 H Lymph # (Auto) 0.5 L [place]lier # (Auto) 0.3 Eos # (Auto) 0.0 Baso # (Auto) 0.0 Neutrophils % (Manual) 58 Band Neutrophils % Lymphocytes % (Manual) 12 L Monocytes % (Manual) 6 Metamyelocytes % 2 H Myelocytes % 1 H Toxic Granulation Present Platelet Estimate Normal Hypochromasia (manual) Slight Poikilocytosis (manual Anisocytosis (manual) Slight PT INR APTT pCO2 40 pO2 176 H HCO3 18.7 L ABG pH 7.27 L ABG Total CO2 19.6 L ABG O2 Saturation 100.1 H ABG O2 Content 14.7 L ABG Base Excess -8.0 L ABG Hemoglobin 10.5 L ABG Carboxyhemoglobin 1.3 POC ABG HHb (Measured) -0.1 L ABG Methemoglobin 1.8 ABG O2 Capacity 14.7 L Francisco Test Yes VBG pH VBG pCO2 VBG HCO3 VBG Total CO2 VBG O2 Sat (Calc) VBG Base Excess VBG Potassium A-a O2 Difference 487.0 Hgb O2 Saturation 97.1 Glucose Lactate Vent Mode A/c Mechanical Rate 12 FiO2 100.0 Tidal Volume 600 PEEP 0 Crit Value Called To Crit Value Called By Crit Value Read Back Blood Gas Notified Time Sodium 147 Potassium 5.2 H Chloride 121 H Carbon Dioxide 16 L Anion Gap 15 BUN 68 H Creatinine 1.4 H Est GFR ( Amer) 43 Est GFR (Non-Af Amer) 36 POC Glucose (mg/dL) Random Glucose 79 Calcium 7.5 L Phosphorus 4.5 Magnesium 1.7 Total Bilirubin 1.1 AST 36 ALT 18 Alkaline Phosphatase 74 Total Protein 6.1 L Albumin 2.3 L Globulin 3.8 Albumin/Globulin Ratio 0.6 L Venous Blood Potassium Urine Color Urine Clarity Urine pH Ur Specific [place] Urine Protein Urine Glucose (UA) Urine Ketones Urine Blood Urine Nitrate Urine Bilirubin Urine Urobilinogen Ur Leukocyte Esterase Urine RBC (Auto) Urine Microscopic WBC Ur Squamous Epith Cells Urine Bacteria reviewed J.P. - EKG Data EKG comments: reviewed J.P. - Imaging and Cardiology Chest x-ray Status: Report reviewed by me (J.P.) Assessment & Plan (1) Acute respiratory failure Status: Acute Priority: High (2) Multifocal pneumonia Status: Acute Priority: High (3) CHF (congestive heart failure) Status: Acute Priority: High (4) UTI (urinary tract infection) Status: Acute Priority: High (5) AMIRA (acute kidney injury) Status: Acute (6) Dementia Status: Acute Priority: Medium - Assessment and Plan (Free Text) Plan: F/U U C-S, Blood C-S, MRSA Screening, Sputum C-S. Wound care for multiple skin breakdown. Continue ventilatory support, Rocephin, Vanco, Heparin, Morphine and rest of Tx. Cardio and ID consult. Pt with poor prognosis, as per nurse; family will make decision for possible terminal extubation. - Date & Time Date: 06/05/18 Time: 10:40
[2018-06-05] MEDS ORDERED: Morphine 100 MG in Sodium Chloride 0.9% 100 ML IV SCH (19:45)
[2018-06-05] MEDS ORDERED: Morphine 100 MG in Sodium Chloride 0.9% 96 ML IV SCH (20:15)
[2018-06-05] MEDS ORDERED: Midazolam 2 MG/2 ML VIAL IV ONE (22:12)
[2018-06-05] MEDS: Morphine 100 MG in Sodium Chloride 0.9% 96 ML IV SCH (23:15)
[2018-06-06] MEDS: Morphine 100 MG in Sodium Chloride 0.9% 96 ML IV SCH (05:49)
[2018-06-06] MEDS: Ipratropium 0.02% Inhal Soln (0.5 mg/2.5 ml) UD IH SCH ×2 (07:47→16:20)
--- NOTE | 2018-06-06 10:40 | CP.CCUPN ---
CCU Subjective - Physician Review Subjective (Free Text): Obtunded, respirations appear smooth since terminal withdrawal from MV support yesterday, on nasal cannula now. Other vitals and I/O's reviewed. No fever spikes nor any low grade temps last 24H. ROS: No other pertinent negs or positives on 10+ system review. PMSFH: All other Nursing and physician documentation reviewed to date; no new pertinent info noted relevant to current medical problems. EXAM- HEENT: no icterus, no gaze preference, Pupils 3 mm and sluggish bilaterally. NECK: No JVD, supple, carotids equal upstroke bilat/no bruits CHEST: decreased BS bases, no wheezes audible HEART: regular, distant, wilfredo S1S2, no rubs or murmurs ABD: soft, no distention, no tympany, no palp tenderness, BS not heard. EXT: no peripheral/ digital cyanosis, no calf tenderness or palpable cords, distal pulses intact and symmetrical. NEURO: flaccid, + tone bilaterally SKIN: no rashes, warm and dry. LABS: from 06/05/18- WBC= 9.2 HGB= 11.4 PLTs= 235K Ue=689 K= 5.2 MF=437 HCO3= 16 BUN/Cr= 68/1.4 BS= 79 IMPRESSION / MAJOR PROBLEMS NOW: 1. s/p Terminal Extuibation for MV support for Acute Hypoxemic resp failure 2 Bilateral Pneumonia 2. s/p Hypernatremia ( Hypovolemic) 3. Azotemia / Dehydration 4. Chronic Disease Anemia PLAN: 1. On Morphine drip post extubation. 2. Ensure comfort measures. 3. Hospice evaluation.
--- NOTE | 2018-06-06 15:11 | CP.PCM.PN ---
Subjective - Date & Time of Evaluation Date of Evaluation: 06/06/18 Time of Evaluation: 10:50 - Subjective Subjective: F/U Acute respiratory failure Terminal extubation, unresponsive, Bill-Tavares breathing, O2 N[place], on Morphine drip, Patient's family at bedside Objective - Vital Signs/Intake and Output Vital Signs (last 24 hours): Temp Pulse Resp BP Pulse Ox 97.8 F 101 H 30 H 83/43 L 94 L 06/06/18 12:00 06/06/18 14:00 06/06/18 14:00 06/06/18 14:00 06/06/18 14:00 Intake and Output: 06/06/18 06/06/18 06:59 18:59 Intake Total 200 0 Output Total 300 Balance -100 0 - Medications Medications: Current Medications Acetaminophen (Tylenol 650 Mg Supp) 650 mg [place] Q6H PRN PRN Reason: Fever >100.4 F Artificial Tears (Refresh Opth Soln) 0.3 ml OU Q4 PRN PRN Reason: Dry eyes Last Admin: 06/05/18 17:44 Dose: 0.3 ml Heparin Sodium (Porcine) (Heparin) 5,000 units SC Q8 LINDA PRN Reason: Protocol Last Admin: 06/06/18 09:17 Dose: Not Given Ceftriaxone Sodium 1 gm/ (Sodium Chloride) 100 mls @ 100 mls/hr IVPB DAILY LINDA PRN Reason: Protocol Last Admin: 06/06/18 09:18 Dose: Not Given Lactated Ringer's (Lactated Ringer's) 1,000 mls @ 100 mls/hr IV .Q10H LINDA Last Admin: 06/05/18 10:30 Dose: 100 mls/hr Vancomycin HCl 1 gm/ Sodium (Chloride) 250 mls @ 166.667 mls/hr IVPB DAILY@ 2200 LINDA PRN Reason: Protocol Last Admin: 06/05/18 23:00 Dose: Not Given Morphine Sulfate 100 mg/ (Sodium Chloride) 100 mls @ 12 mls/hr IV .[id number] LINDA; 12 MG/HR PRN Reason: Protocol Last Titration: 06/06/18 07:44 Dose: 18 mg/hr, 18 mls/hr Ipratropium [place] (Atrovent) 0.5 mg IH RQ8 LIDNA Last Admin: 06/06/18 07:47 Dose: Not Given Morphine Sulfate (Morphine) 2 mg IVP Q4 PRN PRN Reason: Pain, moderate (4-7) Last Admin: 06/05/18 17:53 Dose: 2 mg Pantoprazole Sodium (Protonix Inj) 40 mg IVP DAILY LINDA Last Admin: 06/06/18 09:18 Dose: Not Given - Labs Labs: 06/05/18 04:20 06/05/18 07:27 PT 16.4 Seconds (9.8-13.1) H 06/04/18 19:30 INR 1.5 (0.9-1.2) H 06/04/18 19:30 APTT 28.4 Seconds (25.6-37.1) 06/04/18 19:30 - Constitutional Appears: Chronically Ill - Head Exam Head Exam: NORMAL INSPECTION - Eye Exam Additional comments: Pupils sluggish reactive b/l - ENT Exam Additional comments: Terminal extubation, on O2 NC - Neck Exam Neck Exam: Normal Inspection - Respiratory Exam Respiratory Exam: Decreased Breath Sounds (b/l), Rhonchi (b/l) Additional comments: Bill-Tavares breathing - Cardiovascular Exam Cardiovascular Exam: REGULAR RHYTHM - GI/Abdominal Exam GI & Abdominal Exam: Soft Additional comments: BS not hear. - Extremities Exam Extremities Exam: Normal Inspection - Neurological Exam Additional comments: unresponsive,Bill- Tavares breathing - Skin Skin Exam: Dry, Warm Assessment and Plan (1) Acute respiratory failure Status: Acute (2) Multifocal pneumonia Status: Acute (3) CHF (congestive heart failure) Status: Acute (4) UTI (urinary tract infection) Status: Acute (5) AMIRA (acute kidney injury) Status: Acute (6) Dementia Status: Acute - Assessment and Plan (Free Text) Plan: s/p Terminal extubation, on O2 NC, Morphine drip, evaluation for Hospice Critical care time: 40 minutes
[2018-06-06] MEDS: MORPHINE IV SCH (16:27)
[2018-06-06] MEDS: SODIUM CHLORIDE 0.9% IV SCH (16:27)
[2018-06-07] MEDS: Ipratropium 0.02% Inhal Soln (0.5 mg/2.5 ml) UD IH SCH ×3 (02:36→15:49)
[2018-06-07] MEDS: MORPHINE IV SCH ×2 (06:28→21:21)
[2018-06-07] MEDS: SODIUM CHLORIDE 0.9% IV SCH ×2 (06:28→21:21)
[2018-06-08] MEDS: Ipratropium 0.02% Inhal Soln (0.5 mg/2.5 ml) UD IH SCH ×3 (00:48→15:46)
[2018-06-08] MEDS: MORPHINE IV SCH (10:25)
[2018-06-08] MEDS: SODIUM CHLORIDE 0.9% IV SCH (10:25)
[2018-06-09] MEDS: Ipratropium 0.02% Inhal Soln (0.5 mg/2.5 ml) UD IH SCH ×3 (00:02→16:21)
[2018-06-09] MEDS: MORPHINE IV SCH ×2 (00:35→15:41)
[2018-06-09] MEDS: SODIUM CHLORIDE 0.9% IV SCH ×2 (00:35→15:41)
--- NOTE | 2018-06-09 14:40 | CP.PCM.PN ---
Subjective - Date & Time of Evaluation Date of Evaluation: 06/09/18 Time of Evaluation: 13:30 - Subjective Subjective: Respiraory Failure/ PNA. Objective - Vital Signs/Intake and Output Vital Signs (last 24 hours): Temp Pulse Resp BP Pulse Ox 99.2 F 102 H 16 103/58 L 95 06/09/18 08:21 06/09/18 08:21 06/09/18 08:21 06/09/18 08:21 06/09/18 08:21 Intake and Output: 06/09/18 06/09/18 06:59 18:59 Intake Total 250 Output Total 100 Balance 250 -100 - Medications Medications: Current Medications Acetaminophen (Tylenol 650 Mg Supp) 650 mg [place] Q6H PRN PRN Reason: Fever >100.4 F Artificial Tears (Refresh Opth Soln) 0.3 ml OU Q4 PRN PRN Reason: Dry eyes Last Admin: 06/05/18 17:44 Dose: 0.3 ml Heparin Sodium (Porcine) (Heparin) 5,000 units SC Q8 LINDA PRN Reason: Protocol Last Admin: 06/09/18 10:09 Dose: Not Given Lactated Ringer's (Lactated Ringer's) 1,000 mls @ 100 mls/hr IV .Q10H LINDA Last Admin: 06/05/18 10:30 Dose: 100 mls/hr Morphine Sulfate 250 mg/ (Sodium Chloride) 250 mls @ 18 mls/hr IV .[id number] LINDA ; 18 MG/HR PRN Reason: Protocol Last Admin: 06/09/18 00:35 Dose: 18 mg/hr, 18 mls/hr Ipratropium [place] (Atrovent) 0.5 mg IH RQ8 LINDA Last Admin: 06/09/18 07:14 Dose: 0.5 mg Pantoprazole Sodium (Protonix Inj) 40 mg IVP DAILY LINDA Last Admin: 06/09/18 10:08 Dose: 40 mg - Labs Labs: 06/05/18 04:20 06/05/18 07:27 PT 16.4 Seconds (9.8-13.1) H 06/04/18 19:30 INR 1.5 (0.9-1.2) H 06/04/18 19:30 APTT 28.4 Seconds (25.6-37.1) 06/04/18 19:30 - Constitutional Appears: Chronically Ill - Head Exam Head Exam: NORMAL INSPECTION - Eye Exam Additional comments: Eyes closed, unable to assess - ENT Exam ENT Exam: Normal Exam - Neck Exam Neck Exam: Normal Inspection - Respiratory Exam Respiratory Exam: Decreased Breath Sounds (b/l ), Rhonchi - Cardiovascular Exam Cardiovascular Exam: REGULAR RHYTHM - GI/Abdominal Exam GI & Abdominal Exam: Soft, Hypoactive Bowel Sounds - Extremities Exam Extremities Exam: Pedal Edema - Neurological Exam Additional comments: Obtunded, no movements. - Skin Skin Exam: Dry, Warm Assessment and Plan (1) Acute respiratory failure Status: Acute (2) Multifocal pneumonia Status: Acute (3) CHF (congestive heart failure) Status: Acute (4) UTI (urinary tract infection) Status: Acute (5) AMIRA (acute kidney injury) Status: Acute (6) Dementia Status: Acute
[2018-06-10] MEDS: SODIUM CHLORIDE 0.9% IV SCH ×2 (05:00→17:32)
[2018-06-10] MEDS: MORPHINE IV SCH ×2 (05:00→17:32)
--- NOTE | 2018-06-10 06:28 | CP.PCM.PCO ---
Physician Communication Note - Physician Communication Note Physician Communication Note: I was called by RN for evaluation of fever Assessment/Plan - Assessment and Plan (Free Text) Assessment: S: patient has fever of 101.8. patient was seen and examined O: Significant for tachycardia A/P: 83 y/o F with fever - Stat UA, Ucx and Blood cx ordered - Further management as per admitting doctor
[2018-06-10] MEDS: Ipratropium 0.02% Inhal Soln (0.5 mg/2.5 ml) UD IH SCH ×4 (08:10→23:49)
[2018-06-10 09:54] LABS: SQUAMOUS EPITHIAL 1 /hpf (0-5); URINE BILIRUBIN NEGATIVE (NEGATIVE); URINE BLOOD MODERATE (NEGATIVE); URINE CLARITY CLOUDY (Clear); URINE COLOR YELLOW (YELLOW); URINE GLUCOSE (UA) NEG (Normal); URINE LEUKOCYTE ESTERASE NEG Leu/uL (Negative); URINE PROTEIN 30 mg/dL (NEGATIVE); URINE UROBILINOGEN 0.2-1.0 mg/dL (0.2-1.0)
--- NOTE | 2018-06-10 14:11 | CP.PCM.PN ---
Subjective - Date & Time of Evaluation Date of Evaluation: 06/10/18 Time of Evaluation: 10:50 - Subjective Subjective: F/U Acute respiratory Failure Obtunded, non verbal. Objective - Vital Signs/Intake and Output Vital Signs (last 24 hours): Temp Pulse Resp BP Pulse Ox 100.0 F H 110 H 15 93/46 L 94 L 06/10/18 07:37 06/10/18 07:37 06/10/18 07:37 06/10/18 07:37 06/10/18 07:37 Intake and Output: 06/10/18 06/10/18 06:59 18:59 Intake Total 250 Balance 250 - Medications Medications: Current Medications Acetaminophen (Tylenol 650 Mg Supp) 650 mg [place] Q6H PRN PRN Reason: Fever >100.4 F Last Admin: 06/10/18 03:41 Dose: 650 mg Artificial Tears (Refresh Opth Soln) 0.3 ml OU Q4 PRN PRN Reason: Dry eyes Last Admin: 06/05/18 17:44 Dose: 0.3 ml Lactated Ringer's (Lactated Ringer's) 1,000 mls @ 100 mls/hr IV .Q10H LINDA Last Admin: 06/05/18 10:30 Dose: 100 mls/hr Morphine Sulfate 250 mg/ (Sodium Chloride) 250 mls @ 18 mls/hr IV .[id number] LINDA ; 18 MG/HR PRN Reason: Protocol Last Admin: 06/10/18 05:00 Dose: 18 mg/hr, 18 mls/hr Ipratropium [place] (Atrovent) 0.5 mg IH RQ8 LINDA Last Admin: 06/10/18 08:10 Dose: 0.5 mg Pantoprazole Sodium (Protonix Inj) 40 mg IVP DAILY LINDA Last Admin: 06/10/18 09:09 Dose: 40 mg - Labs Labs: 06/05/18 04:20 06/05/18 07:27 PT 16.4 Seconds (9.8-13.1) H 06/04/18 19:30 INR 1.5 (0.9-1.2) H 06/04/18 19:30 APTT 28.4 Seconds (25.6-37.1) 06/04/18 19:30 - Constitutional Appears: Chronically Ill - Head Exam Head Exam: NORMAL INSPECTION - Neck Exam Neck Exam: Normal Inspection - Respiratory Exam Respiratory Exam: Decreased Breath Sounds (b/l), Rhonchi (b/l) - Cardiovascular Exam Cardiovascular Exam: REGULAR RHYTHM - GI/Abdominal Exam GI & Abdominal Exam: Soft, Hypoactive Bowel Sounds - Extremities Exam Additional comments: 2+ non pitting edema b/l arms and feet. - Neurological Exam Additional comments: Non verbal, comatose - Skin Skin Exam: Pallor Assessment and Plan (1) Acute respiratory failure Status: Acute (2) Multifocal pneumonia Status: Acute (3) CHF (congestive heart failure) Status: Acute (4) UTI (urinary tract infection) Status: Acute (5) AMIRA (acute kidney injury) Status: Acute (6) Dementia Status: Acute - Assessment and Plan (Free Text) Plan: Continue Morphine, Atrovent and rest of Tx. Pt's family at bedside, Hospice protocol discussed with family and they agree. Hospice eval.
[2018-06-11 00:44] VITALS: RESP 18
[2018-06-11] MEDS: MORPHINE IV SCH (07:26)
[2018-06-11] MEDS: SODIUM CHLORIDE 0.9% IV SCH (07:26)
[2018-06-11] MEDS: Ipratropium 0.02% Inhal Soln (0.5 mg/2.5 ml) UD IH SCH (07:44)
[2018-06-11 08:00] VITALS: BP 101/61; PULSE 124; TEMP 101.9; O2SAT 95
--- NOTE | 2018-06-11 09:31 | CP.PCM.PRO ---
Pronouncement of Note - Clinical Findings Physical Exam: No Response Verbal/Painful Stimuli, Absent Peripheral Pulses{ Carotid & Femoral}, Absent Heart & Breath Sounds, Absence of Vital Signs - Pronouncement Time Time of Pronouncement of : 08:40 - Notifications Pronouncement Notifications: Family Notified, Atending Notified Dependency Case Manager Notified: No - Autopsy Autopsy Requested: No [place] [id number]
== END 2018-06-11 08:50 | DRG 208 ==
LOC: H.ER 19:21 → H.ERHOLD 21:24 → H.ICU/CCU 23:43 → H.MEDSURG1 06-08 22:43
PROVIDERS: ADMIT Internal Medicine Pulmonary Disease; ATTEND Internal Medicine Pulmonary Disease
PROC: 5A1935Z Respiratory Ventilation, Less than 24 Consecutive Hours (ICD-10-PCS; principal; 2018-06-04)
PROC: 0BH17EZ Insertion of Endotracheal Airway into Trachea, Via Natural or Artificial Opening (ICD-10-PCS; 2018-06-04)
DX: J96.01 Acute respiratory failure with hypoxia (principal); J18.8 Other pneumonia, unspecified organism; J44.0 Chronic obstructive pulmonary disease with (acute) lower respiratory infection; N39.0 Urinary tract infection, site not specified; N17.9 Acute kidney failure, unspecified; E87.0 Hyperosmolality and hypernatremia; E87.6 Hypokalemia; E86.1 Hypovolemia; I11.0 Hypertensive heart disease with heart failure; I50.9 Heart failure, unspecified; E86.0 Dehydration; B95.62 Methicillin resistant Staphylococcus aureus infection as the cause of diseases classified elsewhere; F03.90 Unspecified dementia, unspecified severity, without behavioral disturbance, psychotic disturbance, mood disturbance, and anxiety; L89.150 Pressure ulcer of sacral region, unstageable; E78.00 Pure hypercholesterolemia, unspecified; Z66 Do not resuscitate; F20.9 Schizophrenia, unspecified; Z87.891 Personal history of nicotine dependence; Z90.49 Acquired absence of other specified parts of digestive tract